=== PATIENT | male | born 1985 | race Caucasian/White ===

== ENCOUNTER 2016-09-17 10:11 | Emergency (ER) | payer BC ==
[2016-09-17 11:18] VITALS: BP 142/81
--- NOTE | 2016-09-17 11:55 | UC ---
Throat Pain/Nasal Sherif HPI - HPI Summary HPI Summary: has been dealing with sinus issues for a month. on and off fevers. when asked about his "hypothermic" episode, he states he had really bad chills but they went away. - History of Current Complaint Chief Complaint: UCGeneralIllness Stated Complaint: SINUS CONGESTION Time Seen by Provider: 09/17/16 11:35 Hx Obtained From: Patient Onset/Duration: Sudden Onset, Lasting Weeks Severity: Moderate Pain Intensity: 6 Pain Scale Used: 0-10 Numeric Cough: Nonproductive Associated Signs & Symptoms: Positive: Wheezing, Sinus Discomfort, Nasal Discharge, Fever - Epiglottits Risk Factors Epiglottis Risk Factors: Negative - Allergies/Home Medications Allergies/Adverse Reactions: Allergies Allergy/AdvReac Type Severity Reaction Status Date / Time Penicillins Allergy Vomiting Verified 07/30/16 08:50 Amoxicillin AdvReac Vomiting Verified 07/30/16 08:50 MOLD BASED PRODUCTS Allergy Vomiting Uncoded 09/17/16 11:13 Home Medications: Home Medications Pseudoephedrine TAB* [Sudafed TAB*] 09/17/16 [History] PMH/Surg Hx/FS Hx/Imm Hx Previously Healthy: Yes Endocrine History Of: Denies: Diabetes Cardiovascular History Of: Denies: Hypertension GI/ History Of: Denies: Renal Disease - Surgical History Surgical History: None - Family History Known Family History: Positive: Cardiac Disease, Hypertension, Diabetes - Social History Alcohol Use: Occasionally Substance Use Type: None Smoking Status (MU): Never Smoked Tobacco Review of Systems Constitutional: Fever, Chills, Fatigue Skin: Negative Eyes: Negative ENT: Sore Throat, Nasal Discharge Respiratory: Cough Cardiovascular: Negative Gastrointestinal: Negative Genitourinary: Negative Motor: Negative Neurovascular: Negative Musculoskeletal: Negative Neurological: Headache Psychological: Negative All Other Systems Reviewed And Are Negative: Yes Physical Exam Triage Information Reviewed: Yes Appearance: Well-Nourished, Ill-Appearing, Pain Distress Vital Signs: Initial Vital Signs Temp 98.3 F 09/17/16 11:14 Pulse 82 09/17/16 11:14 Resp 16 09/17/16 11:14 BP 142/81 09/17/16 11:14 Pulse Ox 97 09/17/16 11:14 Vital Signs Reviewed: Yes Eye Exam: Normal Eyes: Positive: Conjunctiva Clear ENT Exam: Normal ENT: Positive: Hearing grossly normal, Pharyngeal erythema, Nasal congestion, Nasal drainage, TM bulging Dental Exam: Normal Neck exam: Normal Neck: Positive: Supple, Nontender, Enlarged Nodes @ - left cervical Respiratory Exam: Normal Respiratory: Positive: Chest non-tender, Lungs clear, Normal breath sounds Cardiovascular Exam: Normal Cardiovascular: Positive: RRR, No Murmur, Pulses Normal Abdominal Exam: Normal Abdomen Description: Positive: Nontender, No Organomegaly, Soft Bowel Sounds: Positive: Present Musculoskeletal Exam: Normal Musculoskeletal: Positive: Strength Intact, ROM Intact, No Edema Neurological Exam: Normal Neurological: Positive: Alert, Muscle Tone Normal Psychological Exam: Normal Skin Exam: Normal Throat Pain/Nasal Course/Dx - Course Course Of Treatment: hx obtained, exam performed, medication prescribed. educated on fever reduction. he has been taking alot of ibuprofen. educated on max dose and use of tylenol and ice. - Differential Dx/Diagnosis Differential Diagnosis/HQI/PQRI: Influenza, Laryngitis, Otitis Media, Pharyngitis, Sinusitis, Tonsillitis, URI Provider Diagnoses: sinusitis Discharge - Discharge Plan Condition: Stable Disposition: HOME Patient Education Materials: Sinusitis (ED) Additional Instructions: take the medication as prescribed. Get plenty of rest and increase your fluid intake. Follow up with any worsening symptoms.
== END 2016-09-17 12:01 | disposition home or self-care (01) ==
LOC: UCEAST 10:11
DX: J32.9 Chronic sinusitis, unspecified (principal); Z88.0 Allergy status to penicillin
CPT/HCPCS: 99212; G0463

== ENCOUNTER 2017-03-22 07:21 | Emergency (ER) | payer BC ==
--- NOTE | 2017-03-22 07:59 | UC ---
HPI Wound/Suture Re-check - HPI Summary HPI Summary: SUSTAINED LACERATION TO LEFT ANKLE 03/16/17 WHILE DOING A TOUGH MUDDER. HERE FOR SUTURE REMOVAL. IS UTD TETANUS. IS TAKING 2 ANTIBIOTICS. WOUND HEALING WELL. NO PAIN OR DRAINAGE. - History Of Current Complaint Stated Complaint: SUTURE REMOVAL Time Seen by Provider: 03/22/17 07:41 Hx Obtained From: Patient Onset/Duration: Sudden Onset Severity: Mild Pain Intensity: 0 - Allergies/Home Medications Allergies/Adverse Reactions: Allergies Allergy/AdvReac Type Severity Reaction Status Date / Time Penicillins Allergy Vomiting Verified 03/22/17 07:48 Amoxicillin AdvReac Vomiting Verified 03/22/17 07:48 MOLD BASED PRODUCTS Allergy Vomiting Uncoded 03/22/17 07:48 Home Medications: Home Medications Antibiotics 03/22/17 [History] PMH/Surg Hx/FS Hx/Imm Hx Previously Healthy: Yes - Surgical History Surgical History: None - Family History Known Family History: Positive: Cardiac Disease, Hypertension, Diabetes - Social History Alcohol Use: Occasionally Substance Use Type: None Smoking Status (MU): Never Smoked Tobacco Review of Systems Constitutional: Negative Skin: Other - HEALING LACERATION Respiratory: Negative Cardiovascular: Negative Gastrointestinal: Negative All Other Systems Reviewed And Are Negative: Yes Physical Exam Triage Information Reviewed: Yes Appearance: Well-Appearing, No Pain Distress, Well-Nourished Vital Signs: Initial Vital Signs Temp 98.4 F 03/22/17 07:45 Pulse 71 03/22/17 07:45 Resp 20 03/22/17 07:45 BP 139/74 03/22/17 07:45 Pulse Ox 98 03/22/17 07:45 Vital Signs Reviewed: Yes Eyes: Positive: Conjunctiva Clear ENT: Positive: Hearing grossly normal Neck: Positive: Supple Respiratory: Positive: No respiratory distress, No accessory muscle use Cardiovascular: Positive: Pulses Normal Abdomen Description: Positive: Soft Musculoskeletal: Positive: No Edema Neurological: Positive: Alert Psychological: Positive: Age Appropriate Behavior Skin: Positive: Other - LACERATION HEALING WELL. EDGES WELL APPROXIMATED. NON TENDER. NO DRAINAGE. Course/Dx - Course Course Of Treatment: 7 SUTURES REMOVED WITHOUT DIFFICULTY. - Differential Dx - Laceration/Wound Provider Diagnoses: SUTURE REMOVAL LEFT ANKLE Discharge - Discharge Plan Condition: Stable Disposition: HOME Patient Education Materials: Stitches Removal (ED) Referrals: No Primary Care Phys,NOPCP [Primary Care Provider] - Additional Instructions: THE STERISTRIPS WILL FALL OFF ON THEIR OWN IN THE NEXT 1-2 WEEKS. DO NOT PUT ANY OINTMENT ON TOP OF THEM. DO NOT SUBMERGE IN WATER FOR PROLONGED PERIOD OF TIME. OKAY FOR BRIEF SHOWER AFTER 24 HOURS AND THEN BE SURE TO DRY COMPLETELY. SEEK FOLLOW-UP IF YOU DEVELOP SPREADING REDNESS OF THE SKIN, PURULENT DRAINAGE, FEVER, INCREASED PAIN OR ANY OTHER CONCERNING SYMPTOMS.
[2017-03-22 08:01] VITALS: BP 139/74
== END 2017-03-22 08:09 | disposition home or self-care (01) ==
LOC: UCEAST 07:21
DX: S91.012D Laceration without foreign body, left ankle, subsequent encounter (principal); X58.XXXD Exposure to other specified factors, subsequent encounter; Y92.9 Unspecified place or not applicable; Z88.0 Allergy status to penicillin
CPT/HCPCS: 99211; G0463

== ENCOUNTER 2017-06-30 11:12 | Emergency (ER) | payer BC ==
[2017-06-30 11:24] VITALS: BP 140/71
[2017-06-30] MEDS ORDERED: Ibuprofen TAB* 600 MG PO ONE (11:35)
--- NOTE | 2017-06-30 12:07 | UC ---
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 - History of Current Complaint Chief Complaint: UCDizziness Stated Complaint: DIZZINESS,HOT AND COLD SWEATS Time Seen by Provider: 06/30/17 12:00 Hx Obtained From: Patient Onset/Duration: Sudden Onset, Lasting Days Timing: Constant Severity Initially: Moderate Severity Currently: Moderate Pain Intensity: 5 Pain Scale Used: 0-10 Numeric Character: Cough: Nonproductive Alleviating Factors: OTC Meds Associated Signs And Symptoms: Positive: Fever, Chills, Dizziness - Allergies/Home Medications Allergies/Adverse Reactions: Allergies Allergy/AdvReac Type Severity Reaction Status Date / Time Penicillins Allergy Vomiting Verified 06/17/17 08:41 Amoxicillin AdvReac Vomiting Verified 06/17/17 08:41 MOLD BASED PRODUCTS Allergy Vomiting Uncoded 06/17/17 08:41 PMH/Surg Hx/FS Hx/Imm Hx Previously Healthy: Yes - Surgical History Surgical History: Yes Surgery Procedure, Year, and Place: Bilateral Myringotomy - Family History Known Family History: Positive: Cardiac Disease, Hypertension, Diabetes - Social History 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 Lives: With Family Alcohol Use: Rare Substance Use Type: None Smoking Status (MU): Never Smoked Tobacco Have You Smoked in the Last Year: No - Immunization History Most Recent Influenza Vaccination: Not UTD Review of Systems Constitutional: Fever, Chills, Fatigue Skin: Negative Eyes: Negative ENT: Negative Respiratory: Negative Cardiovascular: Negative Gastrointestinal: Negative Genitourinary: Negative Motor: Negative Neurovascular: Negative Musculoskeletal: Arthralgia Neurological: Negative Psychological: Negative Is Patient Immunocompromised?: No All Other Systems Reviewed And Are Negative: Yes Physical Exam Triage Information Reviewed: Yes Appearance: Well-Nourished, Ill-Appearing, Pain Distress Vital Signs: Initial Vital Signs Temp 102.0 F 06/30/17 11:20 Pulse 109 06/30/17 11:20 Resp 20 06/30/17 11:20 BP 140/71 06/30/17 11:20 Pulse Ox 97 06/30/17 11:20 Vital Signs Reviewed: Yes Eye Exam: Normal Eyes: Positive: Conjunctiva Clear ENT Exam: Normal ENT: Positive: Normal ENT inspection, Hearing grossly normal, Pharynx normal, TMs normal, Uvula midline. Negative: Nasal congestion, Nasal drainage, Tonsillar swelling, Tonsillar exudate, Trismus, Muffled voice, Hoarse voice, Sinus tenderness Dental Exam: Normal Neck exam: Normal Neck: Positive: Supple, Nontender, No Lymphadenopathy Respiratory Exam: Normal Respiratory: Positive: Chest non-tender, Lungs clear, Normal breath sounds, No respiratory distress, No accessory muscle use Cardiovascular Exam: Normal Cardiovascular: Positive: RRR, No Murmur, Brisk Capillary Refill, Tachycardia Abdominal Exam: Normal Abdomen Description: Positive: Nontender, No Organomegaly, Soft. Negative: CVA Tenderness (R), CVA Tenderness (L) Bowel Sounds: Positive: Present Musculoskeletal Exam: Normal Musculoskeletal: Positive: Strength Intact, ROM Intact, No Edema Neurological Exam: Normal Neurological: Positive: Alert Psychological Exam: Normal Skin Exam: Normal UC Diagnostic Evaluation - Laboratory O2 Sat by Pulse Oximetry: 97 Diagnostic Studies Comment: ua, influenza, strep (-) Re-Evaluation - Re-Evaluation First Eval Change: Improved - taking po fluids well, hungry, temp 101 Respiratory Course/Dx - Course Course Of Treatment: rest increase fluids, tylenol ibuprofen for pain/fever - Differential Dx/Diagnosis Provider Diagnoses: Viral illness, Elevated Blood pressure without dx of hypertension Discharge - Discharge Plan Condition: Stable Disposition: HOME Patient Education Materials: Fever in Adults (ED), Viral Syndrome (ED), Hypertension (ED) Forms: *Work Release Referrals: [facility] – [place], [place] [facility] REFERR[facility] [Outside] - 2 Weeks No Primary Care Phys,NOPCP [Primary Care Provider] -
== END 2017-06-30 12:53 | disposition home or self-care (01) ==
LOC: UCEAST 11:12
DX: B34.9 Viral infection, unspecified (principal); R03.0 Elevated blood-pressure reading, without diagnosis of hypertension
CPT/HCPCS: 81003; 87502; 87651; 99212; A9270-GY; G0463

== ENCOUNTER 2017-06-30 18:40 | Emergency (ER) | payer BC ==
[2017-06-30] MEDS ORDERED: NS 0.9% 1000 ML* 1,000 ML IV SCH (19:15)
--- NOTE | 2017-06-30 19:19 | UC ---
FLU HPI - HPI Summary HPI Summary: PT WITH 2-3 DAYS OF GO, DIZZINESS, COUGH, CONGESTION, ST, MILD EAR PAIN, SINUS PRESSURE, NAUSEA AND FEVER. FEELS ACHY. WAS SEEN HERE [facility] TODAY AND DX WITH VIRAL SYNDROME. RAPID FLU, STREP AND UA WERE DONE AND ALL NEGATIVE. PT STATES HE WENT HOME AND FELT BETTER BUT THEN STARTED TO FEEL BAD AGAIN AROUND 5PM. TOOK SOME IBUPROFEN AND DECIDED TO COME BACK HERE. PT REPORTS THAT SINCE TAKING THE IBUPROFEN ABOUT 90 MINUTES AGO HE IS FEELING A BIT BETTER AGAIN. 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 - History of Current Complaint Chief Complaint: UCDizziness Stated Complaint: DIZZY Time Seen by Provider: 06/30/17 19:00 Hx Obtained From: Patient, Family/Photographic Processor - GIRLFRIEND Onset/Duration: Gradual Onset, Lasting Days, Still Present Severity Currently: Moderate Severity Initially: Moderate Pain Intensity: 5 Pain Scale Used: 0-10 Numeric Associated Signs & Symptoms: Positive: Fever, Myalgia, Cough, Sore Throat, Nasal Congestion, Headache. Negative: Diarrhea - Allergy/Home Medications Allergies/Adverse Reactions: Allergies Allergy/AdvReac Type Severity Reaction Status Date / Time Penicillins Allergy Vomiting Verified 06/30/17 18:45 Amoxicillin AdvReac Vomiting Verified 06/30/17 18:45 MOLD BASED PRODUCTS Allergy Vomiting Uncoded 06/30/17 18:45 PMH/Surg Hx/FS Hx/Imm Hx Previously Healthy: Yes - Surgical History Surgical History: Yes Surgery Procedure, Year, and Place: Bilateral Myringotomy - Family History Known Family History: Positive: Cardiac Disease, Hypertension, Diabetes - Social History Alcohol Use: Rare Substance Use Type: None Smoking Status (MU): Never Smoked Tobacco Have You Smoked in the Last Year: No - Immunization History Most Recent Influenza Vaccination: Not UTD Review of Systems Constitutional: Fever, Chills, Fatigue ENT: Sore Throat, Ear Ache, Nasal Discharge Respiratory: Cough Cardiovascular: Negative Gastrointestinal: Nausea Musculoskeletal: Myalgia Neurological: Headache All Other Systems Reviewed And Are Negative: Yes Physical Exam Triage Information Reviewed: Yes Appearance: No Pain Distress, Well-Nourished, Ill-Appearing - MILD Vital Signs: Initial Vital Signs Temp 101.1 F 06/30/17 18:46 Pulse 105 06/30/17 18:46 Resp 24 06/30/17 18:46 BP 125/66 06/30/17 18:46 Pulse Ox 98 06/30/17 18:46 Vital Signs Reviewed: Yes Eyes: Positive: Conjunctiva Clear ENT: Positive: Hearing grossly normal, Pharynx normal, TMs normal Neck: Positive: Supple, Nontender, No Lymphadenopathy Respiratory Exam: Normal Cardiovascular: Positive: Tachycardia Abdomen Description: Positive: Nontender, Soft Musculoskeletal: Positive: No Edema Neurological: Positive: Alert Psychological: Positive: Normal Response To Family, Age Appropriate Behavior Skin: Negative: rashes Re-Evaluation - Re-Evaluation First Eval Re-Evaluation Time: 20:10 - feels improved after 1L NS. Ready for d/c home Change: Improved Flu Course/Dx - Differential Dx/Diagnosis Provider Diagnoses: ACUTE VIRAL SYNDROME Discharge - Discharge Plan Condition: Stable Disposition: HOME Patient Education Materials: Viral Syndrome (ED) Referrals: No Primary Care Phys,NOPCP [Primary Care Provider] - Additional Instructions: VIRAL SYNDROME: The physician has diagnosed a viral infection. Viruses not only cause "colds," but can cause many different symptoms including generalized aching, fever, headache, cough, diarrhea, nausea, vomiting, and fatigue. The treatment, for the most part, is simply relief of symptoms. This means that antibiotics are usually not given. Rest, fluids, pain medications and, occasionally, medication for the specific symptoms that are most bothersome will be prescribed. Contact the physician if you develop any new or unusual symptoms such as severe headache, stiff neck, high fever, chest pain, productive cough, or shortness of breath. You should be rechecked if you don't see marked improvement within seven to 10 days. STREP TEST, FLU SWAB AND URINE TEST [facility] TODAY WERE ALL NEGATIVE. NO NEED TO REPEAT OR DO ANY OTHER TESTING AT PRESENT. YOU HAD SOME IMPROVEMENT AFTER 1L SALINE INFUSION. REST AT HOME AND BE SURE TO STAY WELL HYDRATED. TYLENOL AND IBUPROFEN NEEDED FOR FEVER AND DISCOMFORT. IBUPROFEN MAX DOSE: 600MG (3 TABS) EVERY 6 HRS OR 800MG (4 TABS) EVERY 8 HRS TYLENOL MAX DOSE: 1000MG (2 EXTRA STRENGTH TABS) EVERY 8 HRS OR 650MG (2 REGULAR TABS) EVERY 6 HRS SEEK FOLLOW-UP HERE OR WITH A PCP IF YOUR SYMPTOMS DO NOT IMPROVE OVER THE NEXT SEVERAL DAYS. CALL THE NUMBER BELOW FOR ASSISTANCE IN ESTABLISHING WITH A PCP An additional resource available to assist in finding the appropriate physician for your health care needs is the [facility] ([facility]). You may contact them by calling [phone].
[2017-06-30 20:11] VITALS: BP 134/70
== END 2017-06-30 20:20 | disposition home or self-care (01) ==
LOC: UCEAST 18:40
DX: B34.9 Viral infection, unspecified (principal)
CPT/HCPCS: 96360; 99211; G0463

== ENCOUNTER 2017-07-02 03:23 | Emergency (ER) | payer BC ==
[2017-07-02] MEDS ORDERED: Acetaminophen TAB* 325 MG PO ONE (04:15)
[2017-07-02] MEDS ORDERED: NS 0.9% 1000 ML*IV.FLUID IV ONE (04:15)
[2017-07-02] MEDS ORDERED: Ketorolac INJ* 30 MG/ML 1 ML VIAL IV ONE (04:15)
[2017-07-02 05:01] LABS: Hematocrit 38 % (42-52); Hemoglobin 13.2 g/dl (14.0-18.0); Mean Corpuscular HGB Conc 35 g/dl (31-36); Mean Corpuscular Hemoglobin 29 pg (27-31); Mean Corpuscular Volume 83 fL (80-94); Mean Platelet Volume 8 um3 (7.4-10.4); Red Blood Count 4.58 10^6/ul (4.0-5.4); Red Cell Distribution Width 13 % (10.5-15); White Blood Count 6.2 10^3/ul (3.5-10.8)
[2017-07-02] MEDS ORDERED: Levofloxacin TAB* 750 MG PO ONE (05:08)
[2017-07-02 05:18] LABS: Albumin 3.6 g/dL (3.2-5.2); BUN/Creatinine Ratio 18.4 (8-20); C Reactive Protein 48.65 mg/L (< 5.00); Calcium 8.9 mg/dL (8.6-10.3); EGFR African American 154.9 (>60); EGFR Non-African American 120.4 (>60); Globulin 3.1 g/dL (2-4); Potassium 3.8 mmol/L (3.5-5.0); Total Bilirubin 2.2 mg/dL (0.2-1.0); Total Protein 6.7 g/dL (6.4-8.9)
--- NOTE | 2017-07-02 05:37 | ED ---
Gaye Kent Thomas, scribed for Jose Luis Rojo MD on 07/02/17 at 0504 . HPI Febrile Illness - HPI Summary HPI Summary: The pt is a 32 y/o M presenting to the ED c/o fever, lightheadedness, congestion , cough, and dizziness for the last four days ago. The patient has treated the symptoms with ibuprofen SAMPLE PASTER, and this ibuprofen relieves his dizziness. The patient had a near-syncopal episode because I had 30% motor function. Pt additionally c/o vomiting (once three days ago), headache (8/10), and diarrhea. The patient has been evaluated twice at urgent care in the last two days. Rapid Strep and Influenza A/B were negative. Pt denies photophobia and SOB. - History of Current Complaint Chief Complaint: EDUpperRespComplaint Time Seen by Provider: 07/02/17 04:04 Hx Obtained From: Patient Onset/Duration: Started Days Ago - 4, Still Present Timing: Constant Current Severity: Moderate Pain Intensity: 6 Pain Scale Used: 0-10 Numeric Aggravating Factors: Nothing Alleviating Factors: Other: - ibuprofen relieves dizziness Associated Signs and Symptoms: Other: - Fever, lightheadedness, congestion, cough, dizziness, near-syncope, vomiting, headache, diarrhea; NEGATIVE: photophobia, SOB - Allergy/Home Medications Allergies/Adverse Reactions: Allergies Allergy/AdvReac Type Severity Reaction Status Date / Time Penicillins Allergy Vomiting Verified 07/02/17 03:32 Amoxicillin AdvReac Vomiting Verified 07/02/17 03:32 MOLD BASED PRODUCTS Allergy Vomiting Uncoded 07/02/17 03:32 PMH/Surg Hx/FS Hx/Imm Hx Previously Healthy: Yes Endocrine/Hematology History: Denies: Hx Diabetes Cardiovascular History: Denies: Hx Hypertension History: Denies: Hx Renal Disease - Surgical History Surgery Procedure, Year, and Place: Bilateral Myringotomy Infectious Disease History: No Infectious Disease History: Denies: Hx Clostridium Difficile, Hx Hepatitis, Hx Human Immunodeficiency Virus (HIV), Hx of Known/Suspected MRSA, Hx Shingles, Hx Tuberculosis, Hx Known/ Suspected VRE, Hx Known/Suspected VRSA, History Other Infectious Disease, Traveled Outside the [place] in Last 30 Days - Family History Known Family History: Positive: Cardiac Disease, Hypertension, Diabetes - Social History Alcohol Use: Rare Hx Substance Use: No Substance Use Type: Reports: None Hx Tobacco Use: No Smoking Status (MU): Never Smoked Tobacco Have You Smoked in the Last Year: No Review of Systems Positive: Fever Negative: Photophobia Positive: Other - Congestion Positive: Cough. Negative: Shortness Of Breath Positive: Vomiting, Diarrhea Neurological: Other - Lightheadedness, dizziness Positive: Headache, Syncope - near All Other Systems Reviewed And Are Negative: Yes Physical Exam - Summary Physical Exam Summary: VITAL SIGNS: Reviewed. GENERAL: Patient is a well-developed and nourished male who is lying comfortable in the stretcher. Patient is not in any acute respiratory distress. HEAD AND FACE: No signs of trauma. No ecchymosis, hematomas or skull depressions. No sinus tenderness. EYES: PERRLA, EOMI x 2, No injected conjunctiva, no nystagmus. EARS: Hearing grossly intact. Ear canals and tympanic membranes are within normal limits. MOUTH: Oropharynx within normal limits. NECK: Supple, trachea is midline, no adenopathy, no JVD, no carotid bruit, no c- spine tenderness, neck with full ROM. CHEST: Symmetric, no tenderness at palpation LUNGS: Clear to auscultation bilaterally. No wheezing or crackles. CVS: Regular rate and rhythm, S1 and S2 present, no murmurs or gallops appreciated. ABDOMEN: Soft, non-tender. No signs of distention. No rebound no guarding, and no masses palpated. Bowel sounds are normal. EXTREMITIES: FROM in all major joints, no edema, no cyanosis or clubbing. NEURO: Alert and oriented x 3. No acute neurological deficits. Speech is normal and follows commands. SKIN: Dry and warm Triage Information Reviewed: Yes Vital Signs On Initial Exam: Initial Vitals Temp Pulse Resp BP Pulse Ox 102.4 F 95 20 138/50 97 07/02/17 03:25 07/02/17 03:25 07/02/17 03:25 07/02/17 03:25 07/02/17 03:25 Vital Signs Reviewed: Yes Diagnostics - Vital Signs Vital Signs Temp Pulse Resp BP Pulse Ox 07/02/17 04:19 103 98 07/02/17 03:25 102.4 F 95 20 138/50 97 - Laboratory Lab Results: Lab Results 07/02/17 Range/Units 04:30 WBC 6.2 (3.5-10.8) 10^3/ul RBC 4.58 (4.0-5.4) 10^6/ul Hgb 13.2 L (14.0-18.0) g/dl Hct 38 L (42-52) % MCV 83 (80-94) fL MCH 29 (27-31) pg MCHC 35 (31-36) g/dl RDW 13 (10.5-15) % Plt Count 198 (150-450) 10^3/ul MPV 8 (7.4-10.4) um3 Neut % (Auto) 63.1 (38-83) % Lymph % (Auto) 17.2 L (25-47) % [place] % (Auto) 19.0 H (1-9) % Eos % (Auto) 0.2 (0-6) % Baso % (Auto) 0.5 (0-2) % Absolute Neuts (auto) 3.9 (1.5-7.7) 10^3/ul Absolute Lymphs (auto) 1.1 (1.0-4.8) 10^3/ul Absolute Monos (auto) 1.2 H (0-0.8) 10^3/ul Absolute Eos (auto) 0 (0-0.6) 10^3/ul Absolute Basos (auto) 0 (0-0.2) 10^3/ul Absolute Nucleated RBC 0 10^3/ul Nucleated RBC % 0.1 Result Diagrams: 07/02/17 04:30 07/02/17 04:30 Lab Statement: Any lab studies that have been ordered have been reviewed, and results considered in the medical decision making process. - Radiology CXR Xray Interpretation: Positive (See Comments) - Right middle lobe infiltrate Radiology Interpretation Completed By: ED Physician Course/Dx - Course Assessment/Plan: The pt is a 32 y/o M presenting to the ED c/o fever, lightheadedness, congestion, cough, and dizziness for the last four days ago. The patient has treated the symptoms with ibuprofen SAMPLE PASTER, and this ibuprofen relieves his dizziness. The patient had a near-syncopal episode because I had 30% motor function. Pt additionally c/o vomiting (once three days ago), headache (8/10), and diarrhea. The patient has been evaluated twice at urgent care in the last two days. Rapid Strep and Influenza A/B were negative. Pt denies photophobia and SOB. In the ED course the patient was given Acetaminophen, Toradol, Levaquin, and IV fluids. Bloodwork was obtained. CXR is consistent with right middle lobe pneumonia. The patient feels better and would like to be discharged. The patient is instructed to follow up with primary care. The patient is prescribed Levaquin. Patient is agreeable with this plan. - Diagnoses Provider Diagnoses: Right middle lobe pneumonia Discharge - Discharge Plan Condition: Stable Disposition: HOME Patient Education Materials: Pneumonia (ED) Referrals: [facility] [place] [facility] [Outside] - 3 Days Additional Instructions: Follow up with your primary care provider in 3 days. If you do not have a primary care physician, you can use the [facility] [place] Physician Referral Service to find one and make an appointment. Return to the emergency department for any new or worsening symptoms. The documentation as recorded by the Gaye malone Thomas accurately reflects the service I personally performed and the decisions made by me, Jose Luis Rojo MD.
[2017-07-02 05:47] VITALS: BP 125/53
--- NOTE | 2017-07-02 07:49 | RAD ---
HISTORY: Fever, cough COMPARISONS: None VIEWS: 1: frontal portable view of the chest at 30 a.m. FINDINGS: LINES AND TUBES: None. CARDIOMEDIASTINAL SILHOUETTE: The cardiomediastinal silhouette is normal for portable technique. PLEURA: The costophrenic angles are sharp. No pleural abnormalities are noted. LUNG PARENCHYMA: There is confluent alveolar opacification of the right midlung. ABDOMEN: The upper abdomen is clear. There is no subphrenic gas. BONES AND SOFT TISSUES: No bone or soft tissue abnormalities are noted. IMPRESSION: RIGHT MIDLUNG CONSOLIDATION. RECOMMEND FOLLOW-UP UNTIL RESOLUTION TO EXCLUDE UNDERLYING PULMONARY PARENCHYMAL PATHOLOGY.
== END 2017-07-02 05:47 | disposition home or self-care (01) ==
LOC: ED 03:23
DX: J18.9 Pneumonia, unspecified organism (principal); Z88.0 Allergy status to penicillin
CPT/HCPCS: 36415; 71010; 80053; 83605; 85025; 85610; 86140; 87040; 87502; 96360; 96374; 99284; A9270-GY; J1885

== ENCOUNTER 2018-02-17 12:28 | Emergency (ER) | payer BC ==
[2018-02-17 12:48] VITALS: BP 124/83
--- NOTE | 2018-02-17 12:48 | UC ---
Abdominal Pain Male HPI - HPI Summary HPI Summary: 32 yo male presents with LLQ and lower abdominal pain. He tells me that 4 days ago he was at [place] with his friends and he developed lower abdominal cramping and had diarrhea intermittently throughout the day. 3 days ago was the same. Yesterday felt fine and had no diarrhea. Today developed lower abdominal cramping and one episode of loose stool. Throughout this time has been eating and drinking as usual and denies fever. Denies vomiting, dysuria, back pain, dysuria, or blood in stool. - History of Current Complaint Chief Complaint: UCAbdominalPain Stated Complaint: ABDOMINAL PAIN Time Seen by Provider: 02/17/18 12:37 Hx Obtained From: Patient Onset/Duration: Gradual Onset Severity Initially: Mild Severity Currently: Mild Pain Intensity: 4 Pain Scale Used: 0-10 Numeric - Allergies/Home Medications Allergies/Adverse Reactions: Allergies Allergy/AdvReac Type Severity Reaction Status Date / Time amoxicillin Allergy Vomiting Verified 02/17/18 12:49 Penicillins Allergy Vomiting Verified 02/17/18 12:49 MOLD BASED PRODUCTS Allergy Vomiting Uncoded 07/02/17 03:32 PMH/Surg Hx/FS Hx/Imm Hx - Additional Past Medical History Additional PMH: None Previously Healthy: Yes - Surgical History Surgical History: Yes Surgery Procedure, Year, and Place: Bilateral Myringotomy - Family History Known Family History: Positive: Cardiac Disease, Hypertension, Diabetes - Social History Alcohol Use: Occasionally Substance Use Type: None Smoking Status (MU): Never Smoked Tobacco Have You Smoked in the Last Year: No - Immunization History Most Recent Influenza Vaccination: Not UTD Review of Systems Constitutional: Negative Skin: Negative Respiratory: Negative Cardiovascular: Negative Gastrointestinal: Abdominal Pain, Diarrhea Neurovascular: Negative Neurological: Negative Psychological: Negative All Other Systems Reviewed And Are Negative: Yes Physical Exam - Summary Physical Exam Summary: GENERAL: NAD. WDWN. No pain distress. SKIN: No rashes, sores, lesions, or open wounds. NECK: Supple. Nontender. No lymphadenopathy. CHEST: CTAB. No r/r/w. No accessory muscle use. Breathing comfortably and in no distress. CV: RRR. Without m/r/g. Pulses intact. Brisk cap refill. ABDOMEN: Mild TTP lower abdomen. Soft. No distention or guarding. No organomegaly. No CVA tenderness. Bowel sounds present. Negative psoas and obturator. NEURO: Alert. CN II-XII grossly intact. PSYCH: Age appropriate behavior. Triage Information Reviewed: Yes Vital Signs: Initial Vital Signs Temp 99.3 F 02/17/18 12:45 Pulse 77 02/17/18 12:45 Resp 18 02/17/18 12:45 BP 124/83 02/17/18 12:45 Pulse Ox 96 02/17/18 12:45 Abd Pain Male Course/Dx - Course Course Of Treatment: Suspect viral gastroenteritis vs diverticulitis. Pt did not want to go to the ED today. Will treat him with Cipro and Flagyl and stressed that he should go to the ED if his symptoms worsen or if he develops a fever/vomiting/new symptoms. Pt was agreeable to this plan - Differential Dx/Clinical Impression Provider Diagnoses: Low abdominal pain. Diarrhea Discharge - Sign-Out/Discharge Documenting (check all that apply): Discharge/Admit/Transfer - Discharge Plan Condition: Stable Disposition: HOME Prescriptions: Ciprofloxacin TAB* [Cipro 500 MG TAB*] 500 mg PO BID #14 tab metroNIDAZOLE [Flagyl 500 MG TAB] 500 mg PO TID #21 tab Patient Education Materials: Diverticulitis (ED), Diverticulitis Diet (ED) Forms: *Work Release Referrals: No Primary Care Phys,NOPCP [Primary Care Provider] - Additional Instructions: If you develop a fever, shortness of breath, chest pain, worsening abdominal pain, vomiting, new or worsening symptoms - please call your PCP or go to the ED. - Billing Disposition and Condition Condition: STABLE Disposition: Home
== END 2018-02-17 13:25 | disposition home or self-care (01) ==
LOC: UCEAST 12:28
DX: R10.32 Left lower quadrant pain (principal); R19.7 Diarrhea, unspecified; Z88.0 Allergy status to penicillin; Z88.1 Allergy status to other antibiotic agents; Z91.09 Other allergy status, other than to drugs and biological substances
CPT/HCPCS: 99212; G0463

== ENCOUNTER 2018-05-03 13:51 | Emergency (ER) | payer BC ==
[2018-05-03 14:56] VITALS: BP 127/79
--- NOTE | 2018-05-03 16:30 | UC ---
Respiratory Complaint HPI - HPI Summary HPI Summary: Pt is a 33 year old M presenting to with a respiratory complaint. His throat started hurting on Saturday, and it progressively got worse, with neck swelling, inability to swallow without pain, and loss of voice. Today, he can see inflammation and discoloration in his throat. The pt reports a runny nose and a little cough and congestion. The pt denies any fever or chills. The pt refused a throat swab for strep testing. - History of Current Complaint Chief Complaint: UCRespiratory Stated Complaint: SORE THROAT Time Seen by Provider: 05/03/18 16:19 Hx Obtained From: Patient Onset/Duration: Gradual Onset, Lasting Days, Still Present Timing: Constant Severity Initially: Mild Severity Currently: Mild Pain Intensity: 2 Pain Scale Used: 0-10 Numeric Character: Cough: Productive Aggravating Factors: Deep Breaths Associated Signs And Symptoms: Positive: Nasal Congestion, Hoarseness. Negative : Fever, Chills - Allergies/Home Medications Allergies/Adverse Reactions: Allergies Allergy/AdvReac Type Severity Reaction Status Date / Time amoxicillin Allergy Vomiting Verified 05/03/18 14:55 Penicillins Allergy Vomiting Verified 05/03/18 14:55 MOLD BASED PRODUCTS Allergy Vomiting Uncoded 05/03/18 14:55 Home Medications: Home Medications Cetirizine* [ZyrTEC 10 MG TAB*] 10 mg PO DAILY 05/03/18 [History Confirmed 05/03] Ibuprofen 400 mg PO 05/03/18 [History] PMH/Surg Hx/FS Hx/Imm Hx Previously Healthy: Yes Cardiovascular History: Congestive Heart Failure - negative GI/ History: Renal Disease - negative - Surgical History Surgical History: Yes Surgery Procedure, Year, and Place: Bilateral Myringotomy tubes - Family History Known Family History: Positive: Cardiac Disease, Hypertension, Diabetes - Social History Alcohol Use: Rare Substance Use Type: None Smoking Status (MU): Never Smoked Tobacco Have You Smoked in the Last Year: No - Immunization History Most Recent Influenza Vaccination: Not UTD Review of Systems Constitutional: Negative - fever, chills ENT: Negative - ear ache, Sore Throat, Nasal Discharge, Sinus Congestion Respiratory: Cough All Other Systems Reviewed And Are Negative: Yes Physical Exam - Summary Physical Exam Summary: General: well-appearing, no pain distress Skin: warm, color reflects adequate perfusion, dry Head: normal Eyes: EOMI, KARLENE ENT: positive posterior erythema, positive anterior cervical lymphadenopathy Neck: supple, nontender Respiratory: CTA, breath sounds present Cardiovascular: RRR Abdomen: soft, nontender Bowel: present Musculoskeletal: normal, strength/ROM intact Neurological: sensory/motor intact, A&O x3 Psychological: affect/mood appropriate Triage Information Reviewed: Yes Vital Signs: Initial Vital Signs Temp 98.2 F 05/03/18 14:51 Pulse 95 05/03/18 14:51 Resp 18 05/03/18 14:51 BP 127/79 05/03/18 14:51 Pulse Ox 100 05/03/18 14:51 Vital Signs Reviewed: Yes UC Diagnostic Evaluation - Laboratory O2 Sat by Pulse Oximetry: 100 Respiratory Course/Dx - Course Course Of Treatment: VIRAL VERSES BACTERIAL CAUSES OF INFECTION AND THE ROLE OF ANTIBIOTICS WERE DISCUSSED. AT THIS TIME, THE PATIENT PREFERS TO START ANTIBIOTICS. - Differential Dx/Diagnosis Provider Diagnoses: PHARYNGITIS Discharge - Sign-Out/Discharge Documenting (check all that apply): Patient Departure All imaging exams completed and their final reports reviewed: No Studies - Discharge Plan Condition: Stable Disposition: HOME Prescriptions: Azithromyxin RON (NF) [Z-Ron (Zithromax) 250 mg tabs #6] 2 tab PO .TODAY, THEN 1 DAILY #6 tab Patient Education Materials: Pharyngitis (ED) [place] [facility] [place] [facility] [place]] Additional Instructions: FOLLOW UP WITH YOUR DOCTOR IF NOT COMPLETELY IMPROVED. GET RECHECKED FOR ANY WORSENING OF YOUR CONDITION OR QUESTIONS OR CONCERNS. - Billing Disposition and Condition Condition: STABLE Disposition: Home - Attestation Statements Document Initiated by Scribe: Yes Documenting Scribe: Mary Marin Provider For Whom Bryson is Documenting (Include Credential): Artem Calix MD. Scribe Attestation: Donte, Mary Marin, scribed for Artem Calix MD. on 05/03/18 at 2131. Scribe Documentation Reviewed: Yes Provider Attestation: The documentation as recorded by the scribe, Mary Marin accurately reflects the service I personally performed and the decisions made by me, Artem Calix MD.
== END 2018-05-03 16:30 | disposition home or self-care (01) ==
LOC: UCEAST 13:51
DX: J02.9 Acute pharyngitis, unspecified (principal); Z88.0 Allergy status to penicillin
CPT/HCPCS: 99212; G0463

== ENCOUNTER 2018-05-30 21:40 | Emergency (ER) | payer BC ==
[2018-05-30] MEDS ORDERED: Lidocaine 2% 10 ML* VIAL INJ ONE (23:16)
[2018-05-30] MEDS ORDERED: Lidocaine 2% PF * 5 ML VIAL ONE (23:17)
--- NOTE | 2018-05-30 23:24 | ED ---
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 The laceration is located on the palm of the right hand and U shaped. Patient states that he tried to hit a mouse with a broom when the broom broke against the ground and shattered into his hand. The pain is rated 3/10 in severity. Symptoms aggravated by nothing. Symptoms alleviated by nothing. Patient denies any other medical complaints. - History of Current Complaint Stated Complaint: RT HAND LAC Time Seen by Provider: 05/30/18 23:12 Hx Obtained From: Patient Mechanism of Injury: Sharp/Blunt Trauma Onset/Duration: Sudden Onset, Lasting Hours, Still Present Aggravating: Nothing Alleviating: Nothing Current Severity: Moderate Pain Intensity: 3 Pain Scale Used: 0-10 Numeric - Allergy/Home Medications Allergies/Adverse Reactions: Allergies Allergy/AdvReac Type Severity Reaction Status Date / Time amoxicillin Allergy Vomiting Verified 05/30/18 21:50 Penicillins Allergy Vomiting Verified 05/30/18 21:50 MOLD BASED PRODUCTS Allergy Vomiting Uncoded 05/03/18 14:55 Home Medications: Home Medications NK [No Home Medications Reported] 05/30/18 [History Confirmed 05/30/18] PMH/Surg Hx/FS Hx/Imm Hx Previously Healthy: Yes Endocrine/Hematology History: Denies: Hx Diabetes Cardiovascular History: Denies: Hx Hypertension History: Denies: Hx Renal Disease - Surgical History Surgery Procedure, Year, and Place: Bilateral Myringotomy tubes Infectious Disease History: No Infectious Disease History: Denies: Hx Clostridium Difficile, Hx Hepatitis, Hx Human Immunodeficiency Virus (HIV), Hx of Known/Suspected MRSA, Hx Shingles, Hx Tuberculosis, Hx Known/ Suspected VRE, Hx Known/Suspected VRSA, History Other Infectious Disease, Traveled Outside the [place] in Last 30 Days - Family History Known Family History: Positive: Cardiac Disease, Hypertension, Diabetes - Social History Lives: With Family Alcohol Use: Rare Hx Substance Use: No Substance Use Type: Reports: None Hx Tobacco Use: No Smoking Status (MU): Never Smoked Tobacco Have You Smoked in the Last Year: No Review of Systems Negative: Fever Positive: Other - right palm laceration All Other Systems Reviewed And Are Negative: Yes Physical Exam - Summary Physical Exam Summary: Appearance: Well-appearing, Well-nourished, lying in bed comfortable Skin: Warm, dry, right hand has a flap laceration with a 2cm base that appears to be viable Eyes: sclera anicteric, no conjunctival pallor ENT: mucous membranes moist Neck: deferred Respiratory: No signs of respiratory distress Cardiovascular: Appears well perfused, pulses are nml Abdomen: deferred Musculoskeletal: Moving all 4 extremities without obvious discomfort Neurological: Awake and alert, mentation is normal, speech is fluent and appropriate Psychiatric: affect is normal, does not appear anxious or depressed ' Triage Information Reviewed: Yes Vital Signs On Initial Exam: Initial Vitals Temp Pulse Resp BP Pulse Ox 98.6 F 97 18 129/63 98 05/30/18 21:45 05/30/18 21:45 05/30/18 21:45 05/30/18 21:45 05/30/18 21:45 Vital Signs Reviewed: Yes Procedures - Laceration/Wound Repair 1 Location: upper extremity - right palm Length, Depth and Shape: 4 cm flap laceration on 2 cm base Laceration/Wound Explored: clean Closure: Single Layer Suture Type: Nylon Number of Sutures: 5 Layer Closure?: No Sterile Dressing Applied?: Yes Diagnostics - Vital Signs Vital Signs Temp Pulse Resp BP Pulse Ox 05/30/18 21:45 98.6 F 97 18 129/63 98 - Laboratory Lab Statement: Any lab studies that have been ordered have been reviewed, and results considered in the medical decision making process. 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 The laceration is located on the palm of the right hand and U shaped. Laceration repaired. Patient will be discharged with a dx of laceration. Patient is advised to follow up with PCP and orthopedic surgeon in 3 days. The patient is agreeable with this plan. - Clinical Impression Provider Diagnoses: Laceration of right hand Discharge - Sign-Out/Discharge Documenting (check all that apply): Patient Departure - Discharge Plan Condition: Stable Disposition: HOME Patient Education Materials: Laceration (ED) Referrals: Marco Latham MD [Medical Doctor] - Additional Instructions: If the wound starts to look infected, the orthopedic surgeon would be the best person to treat you. If healing is going well sutures should be removed in about 10 days. Change the dressing twice daily or whenever it gets dirty. - Billing Disposition and Condition Condition: STABLE Disposition: Home - Attestation Statements Document Initiated by Bryson: Yes Documenting Scribe: Eileen Zavala Provider For Whom Bryson is Documenting (Include Credential): Amado Jacob MD Scribaniyah Attestation: Eileen Kent scribed for Amado Jacob MD on 06/02/18 at 1357. Scribe Documentation Reviewed: Yes Provider Attestation: The documentation as recorded by the Eileen malone accurately reflects the service I personally performed and the decisions made by me, Amado Jacob MD
[2018-05-30 23:42] VITALS: BP 121/74
== END 2018-05-30 23:41 | disposition home or self-care (01) ==
LOC: ED 21:40
DX: S61.411A Laceration without foreign body of right hand, initial encounter (principal); W26.8XXA Contact with other sharp object(s), not elsewhere classified, initial encounter; Y93.89 Activity, other specified; Y92.9 Unspecified place or not applicable; Z88.0 Allergy status to penicillin
CPT/HCPCS: 12002; 99282

== ENCOUNTER 2018-06-04 19:42 | Emergency (ER) | payer BC ==
[2018-06-04 20:03] VITALS: BP 142/68
--- NOTE | 2018-06-04 20:59 | UC ---
Skin Complaint HPI - HPI Summary HPI Summary: SUSTAINED A LACERATION TO HIS RIGHT PALM 5 DAYS AGO (05/30/18) ON A METAL BROOM HANDLE. HAD 4 SUTURES PLACED IN THE ED. STATES IT WAS FEELING OKAY UNTIL LAST NIGHT. THIS MORNING HE WOKE UP AND HAD INCREASED SWELLING, PAIN AND PURULENT DRAINAGE FROM THE WOUND. SKIN EDGES APPEAR TO HAVE DEHISCED. - History of Current Complaint Chief Complaint: UCLaceration Time Seen by Provider: 06/04/18 20:45 Stated Complaint: HAND LAC,INFLAMED Hx Obtained From: Patient Onset/Duration: Sudden Onset, Lasting Hours, Still Present Timing: Constant Onset Severity: Moderate Current Severity: Moderate Pain Intensity: 4 Pain Scale Used: 0-10 Numeric Location: Discrete - RIGHT PALM Character: Swelling, Pain Aggravating Factor(s): Touch Alleviating Factor(s): Nothing Associated Signs & Symptoms: Positive: Drainage, Tenderness - Allergy/Home Medications Allergies/Adverse Reactions: Allergies Allergy/AdvReac Type Severity Reaction Status Date / Time amoxicillin Allergy Vomiting Verified 06/04/18 20:04 Penicillins Allergy Vomiting Verified 06/04/18 20:04 MOLD BASED PRODUCTS Allergy Vomiting Uncoded 06/04/18 20:04 Review of Systems Constitutional: Negative Skin: Other - LACERATION RIGHT PALM - DEHISCED Respiratory: Negative Cardiovascular: Negative Gastrointestinal: Negative Musculoskeletal: Arthralgia, Decreased ROM, Edema All Other Systems Reviewed And Are Negative: Yes PMH/Surg Hx/FS Hx/Imm Hx Previously Healthy: Yes - Surgical History Surgical History: Yes Surgery Procedure, Year, and Place: Bilateral Myringotomy tubes - Family History Known Family History: Positive: Cardiac Disease, Hypertension, Diabetes - Social History Alcohol Use: Rare Substance Use Type: None Smoking Status (MU): Never Smoked Tobacco Have You Smoked in the Last Year: No - Immunization History Most Recent Influenza Vaccination: Not UTD Most Recent Tetanus Shot: 2011 Physical Exam Triage Information Reviewed: Yes Appearance: Well-Nourished, Pain Distress - MOD Vital Signs: Initial Vital Signs Temp 98.3 F 06/04/18 20:00 Pulse 88 06/04/18 20:00 Resp 12 06/04/18 20:00 BP 142/68 06/04/18 20:00 Pulse Ox 98 06/04/18 20:00 Vital Signs Reviewed: Yes Eyes: Positive: Conjunctiva Clear ENT: Positive: Hearing grossly normal Neck: Positive: Supple Respiratory: Positive: No respiratory distress, No accessory muscle use Cardiovascular: Positive: Pulses Normal Abdomen Description: Positive: Soft Musculoskeletal: Positive: ROM Limited @ - RIGHT HAND, Edema @ - RIGHT HAND SURROUNDING LACERATION, Other: - TTP RIGHT PALM AROUND LACERATION Neurological: Positive: Alert Psychological: Positive: Age Appropriate Behavior Skin: Positive: Other - LACERATION SKIN EDGES DEHISCED, MACERATED Diagnostics - Radiology RIGHT HAND XRAY Radiology Interpretation Completed By: ED Physician Summary of Radiographic Findings: NO FB SEEN Course/Dx - Course Course Of Treatment: WOUND SCRUBBED WITH STERILE SALINE. ONE SUTURE REMOVED WITH SIGNIFICANT IMPROVEMENT IN PATIENT DISCOMFORT. SKIN EDGES LAYING FLATTER. NO DRAINAGE. KEFLEX TWICE DAILY. TDAP BOOSTER. REMAINING SUTURES TO BE REMOVED IN 5 DAYS. - Diagnoses Provider Diagnoses: WOUND DEHISCENCE Discharge - Sign-Out/Discharge Documenting (check all that apply): Patient Departure All imaging exams completed and their final reports reviewed: No - Discharge Plan Condition: Stable Disposition: HOME Prescriptions: Cephalexin CAP* [Keflex 500 CAP*] 500 mg PO BID #12 cap Patient Education Materials: Wound Dehiscence (ED) Referrals: Merle Sykes MD [Primary Care Provider] - If Needed Additional Instructions: ONE STITCH REMOVED TODAY WITH IMPROVEMENT IN YOUR DISCOMFORT. TAKE KEFLEX TWICE DAILY TO COVER FOR ANY INFECTIOUS PROCESS. KEEP THE WOUND CLEAN AND DRY. CHANGE BANDAGE DAILY AND NEEDED IF IT BECOMES SOILED OR WET. DO NOT SUBMERGE IN WATER FOR PROLONGED PERIOD OF TIME. OKAY FOR BRIEF SHOWER AND THEN BE SURE TO ALLOW TO DRY COMPLETELY. SEEK FOLLOW-UP IF YOU DEVELOP SPREADING REDNESS OF THE SKIN, PURULENT DRAINAGE, FEVER, INCREASED PAIN OR ANY OTHER CONCERNING SYMPTOMS. HAVE THE REMAINING 3 SUTURES REMOVED IN 5 DAYS. TETANUS IMMUNIZATION GIVEN (TDAP): You have been given an immunization against tetanus. Please record this in your records. In general, a booster is needed only once every 10 years. The tetanus shot protects against tetanus or "lockjaw," which is a complication of certain wound infections (the tetanus shot cannot protect against the actual infection). The immunization site may become warm and red due to local reaction. If this occurs, apply warm compresses and take aspirin or ibuprofen to reduce inflammation and discomfort. Return for evaluation if the reaction becomes severe. - Billing Disposition and Condition Condition: STABLE Disposition: Home
[2018-06-04] MEDS ORDERED: Tetan/Diph/Pertus SYR(Tdap)* 0.5 ML SYR(BOOSTRIX) use SYR IM ONE (21:42)
[2018-06-04] MEDS ORDERED: Cephalexin CAP* 500 MG PO ONE ×2 (21:43)
--- NOTE | 2018-06-05 07:21 | RAD ---
INDICATION: Evaluate for foreign body. TECHNIQUE: 4 views of the right hand were obtained. FINDINGS: The bones are normal alignment. No fracture or radiopaque foreign body is seen. Joint spaces appear maintained. IMPRESSION: NO RADIOPAQUE FOREIGN BODY IS SEEN.
--- NOTE | 2018-06-05 08:27 | UC ---
- Progress Note Progress Note: Radiologist has read the right hand x-ray from June 04, 2018 as no foreign body seen. The provider's reading was no foreign body seen. Therefore there are NO discrepancies. Discharge - Sign-Out/Discharge Documenting (check all that apply): Patient Departure All imaging exams completed and their final reports reviewed: Yes - Discharge Plan Condition: Stable Disposition: HOME Prescriptions: Cephalexin CAP* [Keflex 500 CAP*] 500 mg PO BID #12 cap Patient Education Materials: Wound Dehiscence (ED) Referrals: Merle Sykes MD [Primary Care Provider] - If Needed Additional Instructions: ONE STITCH REMOVED TODAY WITH IMPROVEMENT IN YOUR DISCOMFORT. TAKE KEFLEX TWICE DAILY TO COVER FOR ANY INFECTIOUS PROCESS. KEEP THE WOUND CLEAN AND DRY. CHANGE BANDAGE DAILY AND NEEDED IF IT BECOMES SOILED OR WET. DO NOT SUBMERGE IN WATER FOR PROLONGED PERIOD OF TIME. OKAY FOR BRIEF SHOWER AND THEN BE SURE TO ALLOW TO DRY COMPLETELY. SEEK FOLLOW-UP IF YOU DEVELOP SPREADING REDNESS OF THE SKIN, PURULENT DRAINAGE, FEVER, INCREASED PAIN OR ANY OTHER CONCERNING SYMPTOMS. HAVE THE REMAINING 3 SUTURES REMOVED IN 5 DAYS. TETANUS IMMUNIZATION GIVEN (TDAP): You have been given an immunization against tetanus. Please record this in your records. In general, a booster is needed only once every 10 years. The tetanus shot protects against tetanus or "lockjaw," which is a complication of certain wound infections (the tetanus shot cannot protect against the actual infection). The immunization site may become warm and red due to local reaction. If this occurs, apply warm compresses and take aspirin or ibuprofen to reduce inflammation and discomfort. Return for evaluation if the reaction becomes severe. - Billing Disposition and Condition Condition: STABLE Disposition: Home
== END 2018-06-04 21:55 | disposition home or self-care (01) ==
LOC: UCEAST 19:42
DX: T81.33XA Disruption of traumatic injury wound repair, initial encounter (principal); Z23 Encounter for immunization; Z88.0 Allergy status to penicillin
CPT/HCPCS: 90471; 90715; 99212; A9270-GY; G0463

== ENCOUNTER 2018-06-09 18:44 | Emergency (ER) | payer BC ==
[2018-06-09 18:55] VITALS: BP 113/68
[2018-06-09] MEDS ORDERED: Mupirocin 2% OINT* TUBE TOPICAL ONE (20:28)
--- NOTE | 2018-06-09 20:34 | UC ---
Hand/Wrist HPI - HPI Summary HPI Summary: 33-year-old male with a chief complaint of right hand wound it's been sutured and not healing well. Due to laceration on 30 May 2018 that was sutured. This started to be some swelling in one area of the laceration and he came back on June 05, 2018 and had one of the sutures removed and he was started on Keflex. His been no drainage or streaking no pus. In the last couple of days the wound is been swelling a he even more and started to break open. He has been having a dressing on it and it has been staying relatively moist from sweating. Started good range of motion of his hand and his wrist. The pain is worse with movement better with rest. - History Of Current Complaint Chief Complaint: UCWounds Stated Complaint: NEEDS STITCHES CHECKED Time Seen by Provider: 06/09/18 20:09 Pain Intensity: 3 - Allergies/Home Medications Allergies/Adverse Reactions: Allergies Allergy/AdvReac Type Severity Reaction Status Date / Time amoxicillin Allergy Vomiting Verified 06/09/18 18:55 Penicillins Allergy Vomiting Verified 06/09/18 18:55 MOLD BASED PRODUCTS Allergy Vomiting Uncoded 06/09/18 18:55 PMH/Surg Hx/FS Hx/Imm Hx Previously Healthy: Yes - Surgical History Surgical History: Yes Surgery Procedure, Year, and Place: Bilateral Myringotomy tubes - Family History Known Family History: Positive: Cardiac Disease, Hypertension, Diabetes - Social History Alcohol Use: Rare Substance Use Type: None Smoking Status (MU): Never Smoked Tobacco Have You Smoked in the Last Year: No - Immunization History Most Recent Influenza Vaccination: Not UTD Most Recent Tetanus Shot: 2011 Review of Systems Constitutional: Negative Skin: Other - SEE HPI Eyes: Negative ENT: Negative Respiratory: Negative Cardiovascular: Negative Gastrointestinal: Negative Motor: Negative Neurovascular: Negative Musculoskeletal: Negative Neurological: Negative Psychological: Negative Is Patient Immunocompromised?: No All Other Systems Reviewed And Are Negative: Yes Physical Exam Triage Information Reviewed: Yes Appearance: Well-Appearing, No Pain Distress, Well-Nourished Vital Signs: Initial Vital Signs Temp 99 F 06/09/18 18:51 Pulse 90 06/09/18 18:51 Resp 16 06/09/18 18:51 BP 113/68 06/09/18 18:51 Pulse Ox 99 06/09/18 18:51 Vital Signs Reviewed: Yes Eye Exam: Normal Eyes: Positive: Conjunctiva Clear Neck exam: Normal Neck: Positive: Supple Respiratory: Positive: No respiratory distress Musculoskeletal Exam: Normal Musculoskeletal: Positive: Strength Intact, ROM Intact Neurological Exam: Normal Neurological: Positive: Alert, Muscle Tone Normal Psychological Exam: Normal Psychological: Positive: Normal Response To Family, Age Appropriate Behavior Skin: Positive: Other - And probable right hand there is a 1.5 cm laceration flap that is swollen. One half of it is starting too dehisce. There is no drainage no streaking no erythema the hand has full range of motion there are 3 sutures remaining. Hand/Wrist Course/Dx - Course Course Of Treatment: I removed the remaining 3 sutures. The plan will be mupirocin with dressing. And follow-up with orthopedic hands. - Differential Dx/Diagnosis Provider Diagnoses: RIGHT HAND WOUND DEHISCENCE Discharge - Sign-Out/Discharge Documenting (check all that apply): Patient Departure All imaging exams completed and their final reports reviewed: No Studies - Discharge Plan Condition: Stable Disposition: HOME Patient Education Materials: Wound Dehiscence (ED) Referrals: Merle Sykes MD [Primary Care Provider] - Marco Latham MD [Medical Doctor] - Additional Instructions: FOLLOW UP WITH ORTHOPEDICS HANDS. GET RECHECKED FOR ANY WORSENING OF YOUR CONDITION OR QUESTIONS OR CONCERNS. - Billing Disposition and Condition Condition: STABLE Disposition: Home
== END 2018-06-09 20:51 | disposition home or self-care (01) ==
LOC: UCEAST 18:44
DX: T81.33XD Disruption of traumatic injury wound repair, subsequent encounter (principal); Y83.8 Other surgical procedures as the cause of abnormal reaction of the patient, or of later complication, without mention of misadventure at the time of the procedure
CPT/HCPCS: 99212; G0463

== ENCOUNTER 2018-06-12 13:07 | Day surgery (SDC) | payer BC ==
[~2018-06-12 13:07] MED LIST: Buffered Lidocaine 0.9% SYRIN* 5 ML/SYR SYRINGE INTRADERM ONE; Dexamethasone IV* 4 MG/ML 1 ML (4 MG) IV SLOW PU ONE; Famotidine IV* 10 MG/ML 2 ML (20 mg) IV ONE
[2018-06-12] MEDS ORDERED: Clindamycin 900 MG/D5W BAG(*) 900 MG/50 ML BAG IVPB ONE (13:23)
[2018-06-12] MEDS ORDERED: Dexamethasone IV* 4 MG/ML 1 ML (4 MG) ONE (13:24)
[2018-06-12] MEDS ORDERED: Famotidine IV* 10 MG/ML 2 ML (20 mg) ONE (13:24)
[2018-06-12] MEDS ORDERED: Bupivacaine 0.25% SDV* 30 ML ONE (15:06)
[2018-06-12] MEDS ORDERED: fentaNYL* 50 MCG/ML 2 ML VIAL (100 MCG VIAL) ONE (16:17)
[2018-06-12] MEDS ORDERED: Lidocaine 2% PF * 5 ML VIAL ONE (16:17)
[2018-06-12] MEDS ORDERED: Ketorolac INJ* 30 MG/ML 1 ML VIAL ONE (16:17)
[2018-06-12] MEDS ORDERED: Propofol* 10 MG/ML 20 ML BTL IV PUSH ONE (16:17)
[2018-06-12] MEDS ORDERED: Midazolam* 1 MG/ML 5 ML VIAL (5 MG) ONE (16:17)
[2018-06-12] MEDS ORDERED: Naloxone* 0.4 MG/ML 1 ML VIAL IV PRN (16:26)
[2018-06-12] MEDS ORDERED: DiMENhydriNATE IV* 50 MG/ML VIAL IV PUSH PRN (16:26)
[2018-06-12] MEDS ORDERED: HYDROcodone/ACETAMIN 5-325 MG* 1 TAB PO PRN (16:26)
[2018-06-12] MEDS ORDERED: fentaNYL* 50 MCG/ML 2 ML VIAL (100 MCG VIAL) IV PRN (16:26)
[2018-06-12] MEDS ORDERED: oxyCODONE/Acetamin 5/325 MG* TAB PO PRN (16:26)
[2018-06-12 17:55] VITALS: BP 119/62
--- NOTE | 2018-06-13 11:33 | OP ---
DATE OF OPERATION: 06/12/18 - [facility] DATE OF : 89 SURGEON: Marco Latham MD NET LEAD ARCHITECT: JULIETA Chand ANESTHESIOLOGIST: Dr. Jones. ANESTHESIA: Local MAC. PRE-OP DIAGNOSIS: Right palm wound measuring 2 x 2 cm. POST-OP DIAGNOSIS: Right palm wound measuring 2 x 2 cm. OPERATIVE PROCEDURE: 1. Irrigation and debridement of right palm wound skin and subcutaneous tissue and fascia defect measuring 2 x 2 cm. 2. Closure of wound with distal and ulnar based U flap. INDICATIONS: Manas a couple of weeks ago had an injury with a broom handle and he has had a flap of tissue that is healed in a very poor position. One piece of skin is markedly elevated more than the other piece of skin. It is not infected, but it is very symptomatic to him and very troublesome having this in his palm. We had talked about risks and benefits, he wanted to proceed. ESTIMATED BLOOD LOSS: 2 mL. COMPLICATIONS: None. FINDINGS: See above and below. DESCRIPTION OF PROCEDURE: Manas was seen in the preoperative area. The correct side, site and procedure were identified. We came back to the operating room where the arm was prepped and draped in the usual fashion. A time-out was performed. The arm was exsanguinated with the Esmarch and the tourniquet inflated to 250 mmHg. I went ahead and reopened his prior wound with the tenotomy scissors. The edges consisted of very disorganized tissue. I went ahead and debrided back the skin edges and the subcutaneous tissue and some deep fascia, I got everything to sit down nice and flush and in the appropriate location. We then rotated the U flap into place. The skin was closed with 4-0 nylon suture. The edges were everted and opposed very nicely. The area was dressed with Xeroform , 4x4, sterile Webril and some Tam wrap. Tourniquet was deflated. The hand pinked up immediately. He was taken to the recovery room in stable condition. [id number]/[facility] #: [id number] [facility]
== END 2018-06-12 17:55 | disposition home or self-care (01) ==
LOC: OREAST 13:07
PROVIDERS: ATTEND Orthopaedic Surgery Hand Surgery
DX: S61.401A Unspecified open wound of right hand, initial encounter (principal); W26.8XXA Contact with other sharp object(s), not elsewhere classified, initial encounter; Y92.9 Unspecified place or not applicable
CPT/HCPCS: J1100; J1885; J2250; J2704; J3010

== ENCOUNTER 2018-07-31 17:30 | Emergency (ER) | payer BC ==
[2018-07-31 17:41] VITALS: BP 122/79
[2018-07-31] MEDS ORDERED: Ibuprofen TAB* 600 MG PO ONE (17:50)
--- NOTE | 2018-07-31 18:00 | UC ---
Respiratory Complaint HPI - HPI Summary HPI Summary: 33-year-old male comes in with a complaint of sinusitis and pneumonia symptoms. Patient's had an upper respiratory tract infection for approximately 5 weeks it's been getting worse. Getting frontal sinus and maxillary sinus headaches. Is gotten yellow-green rhinorrhea. In the last week or so it's gone into his chest and reminds her of when he had a pneumonia back in June 2017. It does hurt when he takes a deep breath. His last when he breathes shallow. He is taken ibuprofen which helped with the fever this morning. He has been having fevers. Does feel somewhat lightheaded. - History of Current Complaint Chief Complaint: UCGeneralIllness Stated Complaint: URI Time Seen by Provider: 07/31/18 17:36 Pain Intensity: 6 - Allergies/Home Medications Allergies/Adverse Reactions: Allergies Allergy/AdvReac Type Severity Reaction Status Date / Time amoxicillin Allergy Vomiting Verified 06/12/18 13:36 latex Allergy Rash And Verified 06/12/18 13:36 Itching Penicillins Allergy Vomiting Verified 06/12/18 13:36 MOLD BASED PRODUCTS Allergy Vomiting Uncoded 06/12/18 13:36 Home Medications: Home Medications Ibuprofen 600 mg PO ONCE 07/31/18 [History Confirmed 07/31/18] PMH/Surg Hx/FS Hx/Imm Hx Previously Healthy: Yes Respiratory History: Pneumonia - Surgical History Surgical History: Yes Surgery Procedure, Year, and Place: Bilateral Myringotomy tubes. RIGHT HAND - Family History Known Family History: Positive: Cardiac Disease, Hypertension, Diabetes - Social History Alcohol Use: Rare Substance Use Type: None Smoking Status (MU): Never Smoked Tobacco Have You Smoked in the Last Year: No - Immunization History Most Recent Influenza Vaccination: Not UTD Most Recent Tetanus Shot: 2011 Review of Systems All Other Systems Reviewed And Are Negative: Yes Constitutional: Positive: Fever Skin: Positive: Negative Eyes: Positive: Negative ENT: Positive: Sore Throat, Nasal Discharge, Sinus Congestion, Sinus Pain/ Tenderness Respiratory: Positive: Shortness Of Breath, Cough Cardiovascular: Positive: Chest Pain Gastrointestinal: Positive: Negative Motor: Positive: Negative Neurovascular: Positive: Negative Musculoskeletal: Positive: Negative Neurological: Positive: Negative Psychological: Positive: Negative Is Patient Immunocompromised?: No Physical Exam Triage Information Reviewed: Yes Appearance: No Pain Distress, Well-Nourished, Ill-Appearing - mild Vital Signs: Initial Vital Signs Temp 102 F 07/31/18 17:36 Pulse 107 07/31/18 17:36 Resp 20 07/31/18 17:36 BP 122/79 07/31/18 17:36 Pulse Ox 98 07/31/18 17:36 Vital Signs Reviewed: Yes Eye Exam: Normal Eyes: Positive: Conjunctiva Clear ENT: Positive: Pharyngeal erythema, Nasal congestion, Nasal drainage, TMs normal , Uvula midline Neck exam: Normal Neck: Positive: Supple Respiratory: Positive: Lungs clear, Normal breath sounds, No respiratory distress Cardiovascular: Positive: RRR Musculoskeletal Exam: Normal Musculoskeletal: Positive: Strength Intact, ROM Intact Neurological Exam: Normal Neurological: Positive: Alert, Muscle Tone Normal Psychological Exam: Normal Psychological: Positive: Age Appropriate Behavior Skin Exam: Normal UC Diagnostic Evaluation - Laboratory O2 Sat by Pulse Oximetry: 98 Respiratory Course/Dx - Course Course Of Treatment: Patient reports this feels like he has pneumonia. We discussed getting a chest x-ray and treating with antibiotics. At this time since her going to be treating with antibiotics he declined a chest x-ray. If the patient does not improve and returns consider a chest x-ray at that time. Patient reports that last year when he had this illness he was treated with different antibiotics and it wasn't until he had the antibiotic that was prescribed at the emergency department that he got better. He is allergic to penicillin. Last year June 16, 2017 he was prescribed Levaquin 750 mg by mouth daily for 10 days. I discussed we prescribing this a sinus symptoms today and the patient agreed. Plan is to follow-up primary care doctor if not completely improved go to the emergency department if worse return here if needed. - Differential Dx/Diagnosis Provider Diagnosis: Sinusitis, Bronchitis Discharge - Sign-Out/Discharge Documenting (check all that apply): Patient Departure All imaging exams completed and their final reports reviewed: No Studies - Discharge Plan Condition: Stable Disposition: HOME Prescriptions: Levofloxacin TAB* [Levaquin TAB*] 750 mg PO DAILY #10 tab Patient Education Materials: Sinusitis (ED), Acute Bronchitis (ED) Forms: *Work Release Referrals: Merle Sykes MD [Primary Care Provider] - Additional Instructions: FOLLOW UP WITH YOUR DOCTOR. GO TO THE EMERGENCY DEPARTMENT FOR ANY WORSENING OF YOUR CONDITION OR QUESTIONS OR CONCERNS. - Billing Disposition and Condition Condition: STABLE Disposition: Home
== END 2018-07-31 18:05 | disposition home or self-care (01) ==
LOC: UCEAST 17:30
DX: J32.9 Chronic sinusitis, unspecified (principal); J40 Bronchitis, not specified as acute or chronic; Z88.0 Allergy status to penicillin; Z91.040 Latex allergy status; Z91.048 Other nonmedicinal substance allergy status
CPT/HCPCS: 99212; A9270-GY; G0463

== ENCOUNTER 2018-09-11 18:54 | Emergency (ER) | payer BC ==
[2018-09-11 19:08] VITALS: BP 153/77
--- NOTE | 2018-09-11 19:17 | UC ---
Throat Pain/Nasal Sherif HPI - HPI Summary HPI Summary: 33 year old male presents with complaints of maxillary sinus pain/pressure, nasal congestion, and post-nasal drip. States he has been having issues with recurrent sinus infections. Was treated approximately 3 weeks ago with a course of azithromycin. Had improvement but symptoms did not completely resolve. Over past 5-7 days symptoms have been progressively worsened again. Denies fever, chills, ear pain, sore throat, cough, chest pain, or shortness of breath. - History of Current Complaint Chief Complaint: UCRespiratory Stated Complaint: SINUS CONGESTION, AND HEADACHE Time Seen by Provider: 09/11/18 19:06 Hx Obtained From: Patient Pain Intensity: 2 - Allergies/Home Medications Allergies/Adverse Reactions: Allergies Allergy/AdvReac Type Severity Reaction Status Date / Time amoxicillin Allergy Vomiting Verified 09/11/18 19:02 latex Allergy Rash And Verified 09/11/18 19:02 Itching Penicillins Allergy Vomiting Verified 09/11/18 19:02 MOLD BASED PRODUCTS Allergy Vomiting Uncoded 09/11/18 19:02 PMH/Surg Hx/FS Hx/Imm Hx Previously Healthy: Yes Respiratory History: Pneumonia - Surgical History Surgical History: Yes Surgery Procedure, Year, and Place: Bilateral Myringotomy tubes. RIGHT HAND - Family History Known Family History: Positive: Cardiac Disease, Hypertension, Diabetes - Social History Occupation: Employed Full-time Lives: With Family Alcohol Use: Rare Substance Use Type: None Smoking Status (MU): Never Smoked Tobacco Have You Smoked in the Last Year: No - Immunization History Most Recent Influenza Vaccination: Not UTD Most Recent Tetanus Shot: 2011 Review of Systems All Other Systems Reviewed And Are Negative: Yes Constitutional: Negative: Fever, Chills Eyes: Negative: Eye Redness, Photophobia ENT: Positive: Sore Throat, Nasal Discharge, Sinus Congestion, Sinus Pain/ Tenderness. Negative: Ear Ache Respiratory: Positive: Cough. Negative: Shortness Of Breath Cardiovascular: Negative: Palpitations, Chest Pain Gastrointestinal: Negative: Abdominal Pain, Vomiting, Diarrhea, Nausea Genitourinary: Positive: Negative Musculoskeletal: Positive: Negative Neurological: Positive: Negative Is Patient Immunocompromised?: No Physical Exam - Summary Physical Exam Summary: GENERAL APPEARANCE: Well developed, well nourished, alert and cooperative, and appears to be in no acute distress. EYES: Conjunctiva clear. No drainage. Vision is grossly intact. EARS: External auditory canals and tympanic membranes clear, hearing grossly intact. NOSE: Mild-moderate nasal congestion with mucosal erythema and edema. Maxillary sinus tenderness with percussion. THROAT: Oral cavity and pharynx normal. No inflammation, swelling, exudate, or lesions. Teeth and gingiva in good general condition. NECK: Neck supple, non-tender without lymphadenopathy. CARDIAC: Normal S1 and S2. No S3, S4 or murmurs. Rhythm is regular. There is no peripheral edema, cyanosis or pallor. Extremities are warm and well perfused. Capillary refill is less than 2 seconds. LUNGS: Clear to auscultation without rales, rhonchi, wheezing or diminished breath sounds. ABDOMEN: Positive bowel sounds. Soft, nondistended, nontender. No guarding or rebound. No masses or hepatosplenomegally. MUSKULOSKELETAL: ROM intact to all extremities. No joint erythema or tenderness. Normal muscular development. Normal gait. SKIN: Skin normal color, texture and turgor with no lesions or eruptions. Triage Information Reviewed: Yes Vital Signs: Initial Vital Signs Temp 98.4 F 09/11/18 18:58 Pulse 77 09/11/18 18:58 Resp 18 09/11/18 18:58 BP 153/77 09/11/18 18:58 Pulse Ox 96 09/11/18 18:58 Vital Signs Reviewed: Yes Throat Pain/Nasal Course/Dx - Course Course Of Treatment: 33 year old male presents with complaints of maxillary sinus pain/pressure, nasal congestion, and post-nasal drip. States he has been having issues with recurrent sinus infections. Was treated approximately 3 weeks ago with a course of azithromycin. Had improvement but symptoms did not completely resolve. Over past 5-7 days symptoms have been progressively worsened again. Denies fever, chills, ear pain, sore throat, cough, chest pain, or shortness of breath. Afebrile. Hypertensive but otherwise VSS. Exam reveals an adult male in no acute distress with maxillary sinus tenderness, mild- moderate nasal congestion, and otherwise unremarkable exam. Considering the duration and reoccurence of his symptoms with treat with 10 day course of doxycycline 100 mg BID as well as symptomatic treatment. He is to follow up with ENT if symptoms persist. Anticipatory guidance and warning symptoms reviewed with patient. Verbalizes understanding and agrees with POC. - Differential Dx/Diagnosis Differential Diagnosis/HQI/PQRI: Otitis Media, Pharyngitis, Sinusitis, URI Provider Diagnosis: Maxillary sinusitis Discharge - Sign-Out/Discharge Documenting (check all that apply): Patient Departure All imaging exams completed and their final reports reviewed: No Studies - Discharge Plan Condition: Stable Disposition: HOME Prescriptions: Doxycycline Hyclate 100 mg PO BID #20 tablet Fluticasone NASAL SPRAY 50MCG* [Flonase NASAL SPRAY 50MCG*] 2 spray BOTH NARES DAILY #1 btl Patient Education Materials: Sinusitis (ED) Referrals: Merle Sykes MD [Primary Care Provider] - (For recheck of blood pressure.) Seymour Hoyos MD [Medical Doctor] - 7 Days (If no improvement in symptoms. Call for an appointment.) Additional Instructions: Your history and exam are consistent with a sinus infection. Considering the duration of your symptoms I will treat the infection with an antibiotic. Start doxycycline 100 mg 1 tab twice a day for 10 days. Drink plenty of fluids to avoid dehydration especially if you are running any fever. Use a saline rinse kit such as Neti Pot or NeilMed at least twice a day to help thin secretions and promote drainage of the sinuses. Use fluticasone (Flonase) nasal spray 2 sprays each nostril once daily. Use an over the counter decongestant such as Sudafed according to directions to help with congestion. Take over the counter acetaminophen (Tylenol) or ibuprofen (Advil, Motrin) according to directions as needed for pain or fever. Follow up with ENT in 7 days if symptoms persist. Your blood pressure was elevated in the clinic tonight. It is recommended that you follow up with your primary care provider within 4 weeks to have this rechecked. Seek immediate medical attention in the emergency room if you have fever greater than 100.5 F despite taking acetaminophen or ibuprofen, have chest pain , difficulty breathing, are unable to swallow, or have any worsening of symptoms. - Billing Disposition and Condition Condition: STABLE Disposition: Home
== END 2018-09-11 19:30 | disposition home or self-care (01) ==
LOC: UCEAST 18:54
DX: J32.0 Chronic maxillary sinusitis (principal); Z87.01 Personal history of pneumonia (recurrent); Z91.040 Latex allergy status; Z88.0 Allergy status to penicillin; Z91.09 Other allergy status, other than to drugs and biological substances
CPT/HCPCS: 99212; G0463

== ENCOUNTER 2018-10-25 16:42 | Emergency (ER) | payer BC ==
[2018-10-25 17:03] VITALS: BP 137/77
--- NOTE | 2018-10-25 17:48 | UC ---
Nausea/Vomiting/Diarrhea HPI - HPI Summary HPI Summary: Onset yesterday of diffuse abdominal pain and nausea. Developed watery diarrhea in the middle of the night. States he is going every hour or more. No fever. No vomiting. Of note patient was on a course of doxycycline about 1 month ago for sinusitis. - History of Current Complaint Chief Complaint: UCGI Stated Complaint: STOMACH PAIN Time Seen by Provider: 10/25/18 17:16 Hx Obtained From: Patient Onset/Duration: Sudden Onset, Lasting Hours, Still Present Timing: Constant Severity Initially: Moderate Severity Currently: Moderate Pain Intensity: 7 Pain Scale Used: 0-10 Numeric Location: Diffuse Character: Dull Aggravating Factor(s): Nothing Alleviating Factor(s): Nothing Nausea/Vomiting Presence: Nauseated Diarrhea Presence: Yes Diarrhea Frequency: Every 1-2 hours Diarrhea Duration: 12-24 hours Diarrhea Characteristics: Watery - Allergies/Home Medications Allergies/Adverse Reactions: Allergies Allergy/AdvReac Type Severity Reaction Status Date / Time amoxicillin Allergy Vomiting Verified 10/25/18 17:04 latex Allergy Rash And Verified 10/25/18 17:04 Itching Penicillins Allergy Vomiting Verified 10/25/18 17:04 MOLD BASED PRODUCTS Allergy Vomiting Uncoded 10/25/18 17:04 PMH/Surg Hx/FS Hx/Imm Hx Previously Healthy: Yes - Surgical History Surgical History: Yes Surgery Procedure, Year, and Place: Bilateral Myringotomy tubes. RIGHT HAND - Family History Known Family History: Positive: Cardiac Disease, Hypertension, Diabetes - Social History Alcohol Use: Rare Substance Use Type: None Smoking Status (MU): Never Smoked Tobacco Have You Smoked in the Last Year: No - Immunization History Most Recent Influenza Vaccination: Not UTD Most Recent Tetanus Shot: 2011 Review of Systems All Other Systems Reviewed And Are Negative: Yes Constitutional: Positive: Negative Respiratory: Positive: Negative Cardiovascular: Positive: Negative Gastrointestinal: Positive: Abdominal Pain, Diarrhea, Nausea. Negative: Vomiting Genitourinary: Positive: Negative Physical Exam Triage Information Reviewed: Yes Appearance: Well-Appearing, No Pain Distress, Well-Nourished Vital Signs: Initial Vital Signs Temp 98.3 F 10/25/18 17:00 Pulse 88 10/25/18 17:00 Resp 12 10/25/18 17:00 BP 137/77 10/25/18 17:00 Pulse Ox 100 10/25/18 17:00 Vital Signs Reviewed: Yes Eyes: Positive: Conjunctiva Clear ENT: Positive: Hearing grossly normal, Pharynx normal, TMs normal Neck: Positive: Supple, Nontender, No Lymphadenopathy Respiratory Exam: Normal Cardiovascular Exam: Normal Abdomen Description: Positive: Soft, Other: - MILD DIFFUSE TENDERNESS. NO REBOUND OR RIGIDITY. Negative: CVA Tenderness (R), CVA Tenderness (L), Distended, Guarding Bowel Sounds: Positive: Present Musculoskeletal: Positive: No Edema Neurological: Positive: Alert Psychological: Positive: Age Appropriate Behavior Skin: Negative: Rashes Naus/Vom/Diarrhea Course/Dx - Course Course Of Treatment: PATIENT LIKELY HAS VIRAL GASTROENTERITIS. ZOFRAN FOR NAUSEA. ENCOURAGED HYDRATION AND EASY DIET UNTIL SYMPTOMS IMPROVE. GIVEN PATIENT'S RELATIVELY RECENT COURSE OF DOXYCYCLINE HAVE STRONGLY ENCOURAGED HIM TO SEEK REEVALUATION IF HIS SYMPTOMS ARE WORSENING OR NOT IMPROVED AFTER SEVERAL DAYS. IF HE DOES NOT IMPROVE EXPECTED WOULD CONSIDER STOOL STUDIES. - Differential Dx/Diagnosis Provider Diagnosis: Gastroenteritis Condition At Discharge: Stable Discharge - Sign-Out/Discharge Documenting (check all that apply): Patient Departure All imaging exams completed and their final reports reviewed: No Studies - Discharge Plan Condition: Stable Disposition: HOME Prescriptions: Ondansetron ODT TAB* [Zofran Odt TAB*] 4 mg PO Q6H PRN #20 tab.odt PRN Reason: Nausea/Vomiting Patient Education Materials: Gastroenteritis (ED) Forms: *Work Release Referrals: No Primary Care Phys,NOPCP [Primary Care Provider] - Additional Instructions: GASTROENTERITIS: You have gastroenteritis ("intestinal flu"). This disease is usually caused by a virus. There is no specific treatment. The disease will end by itself. For now, the main danger is dehydration. Give clear liquids. Examples include Pedialyte, Gatorade, clear broth, juices, flat sodas, and jello water. Medications may be prescribed by the physician for special cases. Once tolerated, the clear liquid diet may be supplemented with rice, cereal, toast, applesauce, or bananas. GO TO [facility] WITHOUT FAIL if vomiting increases or blood appears in the bowel movement or vomitus; if you fail to improve, or if signs of dehydration occur (tongue and mouth become dry, lethargy). ENSURE ADEQUATE HYDRATION. CLEAR LIQUIDS, BLAND DIET. AVOID CAFFEINE, DAIRY, GREASY, SPICY FOODS. ONCE YOU ARE TOLERATING CLEAR LIQUIDS YOU CAN ADVANCE TO SIMPLE, BLAND FOODS. CALL THE NUMBER BELOW FOR ASSISTANCE IN ESTABLISHING WITH A PCP An additional resource available to assist in finding the appropriate physician for your health care needs is the [facility] ([facility]). You may contact them by calling [phone]. - Billing Disposition and Condition Condition: STABLE Disposition: Home
== END 2018-10-25 17:43 | disposition home or self-care (01) ==
LOC: UCEAST 16:42
DX: K52.9 Noninfective gastroenteritis and colitis, unspecified (principal); Z91.09 Other allergy status, other than to drugs and biological substances; Z88.0 Allergy status to penicillin; Z91.040 Latex allergy status
CPT/HCPCS: 99212; G0463

== ENCOUNTER 2018-12-07 15:40 | Emergency (ER) | payer BC ==
--- OUTSIDE RECORDS SUMMARY | 2018-12-07 15:46 | XMS REPORT | Continuity of Care Document ---
:1985 External Reference #:[id number] Author Name Evelin Sierra PA-C Address [address] [address] Care Team Providers Name Role Phone Nacho Aguirre M.D. 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 Tobacco Use Start: Unknown Never Smoked Cigarettes Tobacco Use Start: Unknown Never Smoked Cigars Tobacco Use Start: Unknown Never Smoked A Pipe Smokeless Tobacco Never Used Smokeless Tobacco ETOH Use Denies alcohol use Tobacco Use Start: Unknown Patient has never smoked Smoking Status Reviewed: 11/12/18 Patient has never smoked Allergies, Adverse Reactions, Alerts Date Description Reaction Status Severity Comments 11/12/2018 Penicillin Active 11/12/2018 Amoxicillin Active 11/12/2018 Mold Based Medications Active Medications Medication Date Status Form Strength Qnty SIG Indications Ordering Provider Tylenol Active Capsules 325mg as directed Unknown 000 [facility] Vitamin Active Tablets 1000mcg Unknown B12 000 Immunizations Description No Information Available Vital Signs Description No Information Available Results Description No Information Available Procedures Description No Information Available Encounters Type Date Location Provider Dx Diagnosis Office Visit 11/12/2018 [place],After Evelin Sierra J32.8 Other chronic 10:30a 08/12/07 [place] sinusitis J30.2 Other seasonal allergic rhinitis Plan of Treatment 11/12/2018 - [place] BenitesCJ32.8 Other chronic [id number] Other seasonal allergic rhinitisFollow up:1 month with allergy testing prior.
[2018-12-07 15:54] VITALS: BP 133/72
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
== END 2018-12-07 16:28 | disposition home or self-care (01) ==
LOC: UCEAST 15:40
DX: S06.0X0A Concussion without loss of consciousness, initial encounter (principal); Z88.0 Allergy status to penicillin; Z91.040 Latex allergy status; Z91.09 Other allergy status, other than to drugs and biological substances; X58.XXXA Exposure to other specified factors, initial encounter; Y92.9 Unspecified place or not applicable
CPT/HCPCS: 99211; G0463

== ENCOUNTER 2018-12-22 08:58 | Emergency (ER) | payer BC ==
[2018-12-22 09:34] VITALS: BP 111/73
--- NOTE | 2018-12-22 10:08 | UC ---
Throat Pain/Nasal Sherif HPI - HPI Summary HPI Summary: Sore throat and head congestion over the past week. One child at home has strep pharyngitis. - History of Current Complaint Chief Complaint: UCGeneralIllness Stated Complaint: FEVER THROAT PAIN Time Seen by Provider: 12/22/18 09:38 Hx Obtained From: Patient Onset/Duration: Gradual Onset Severity: Mild Pain Intensity: 5 Cough: None Associated Signs & Symptoms: Positive: Negative - Allergies/Home Medications Allergies/Adverse Reactions: Allergies Allergy/AdvReac Type Severity Reaction Status Date / Time amoxicillin Allergy Vomiting Verified 12/22/18 09:34 latex Allergy Rash And Verified 12/22/18 09:34 Itching Penicillins Allergy Vomiting Verified 12/22/18 09:34 MOLD BASED PRODUCTS Allergy Vomiting Uncoded 12/22/18 09:34 PMH/Surg Hx/FS Hx/Imm Hx Previously Healthy: Yes - Surgical History Surgical History: Yes Surgery Procedure, Year, and Place: eustachian tubes as a child. RIGHT HAND - Family History Known Family History: Positive: Cardiac Disease, Hypertension, Diabetes - Social History Alcohol Use: Rare Substance Use Type: None Smoking Status (MU): Never Smoked Tobacco Have You Smoked in the Last Year: No - Immunization History Most Recent Influenza Vaccination: Not UTD Most Recent Tetanus Shot: 2011 Review of Systems All Other Systems Reviewed And Are Negative: Yes Constitutional: Positive: Fever ENT: Positive: Sore Throat Is Patient Immunocompromised?: No Physical Exam Triage Information Reviewed: Yes Appearance: Well-Appearing, No Pain Distress, Well-Nourished Vital Signs: Initial Vital Signs Temp 98.4 F 12/22/18 09:30 Pulse 64 12/22/18 09:30 Resp 18 12/22/18 09:30 BP 111/73 12/22/18 09:30 Pulse Ox 97 12/22/18 09:30 Vital Signs Reviewed: Yes Eye Exam: Normal ENT: Positive: Normal ENT inspection, Hearing grossly normal, Pharynx normal, TMs normal, Uvula midline. Negative: Tonsillar swelling, Tonsillar exudate, Trismus, Muffled voice, Hoarse voice Neck exam: Normal Neck: Positive: Supple, Nontender, No Lymphadenopathy Respiratory: Positive: Lungs clear, Normal breath sounds, No respiratory distress, No accessory muscle use Cardiovascular: Positive: RRR, No Murmur, Pulses Normal, Brisk Capillary Refill Abdominal Exam: Normal Abdomen Description: Positive: Nontender, No Organomegaly, Soft Bowel Sounds: Positive: Present Musculoskeletal Exam: Normal Neurological Exam: Normal Psychological Exam: Normal Skin Exam: Normal Throat Pain/Nasal Course/Dx - Course Course Of Treatment: Rapid strep test was negative. He is to do warm saltwater gargles, throat lozenges take Tylenol or Motrin for pain. Definite follow up with his primary care provider if no improvement in 3 or 4 days. - Differential Dx/Diagnosis Provider Diagnosis: Pharyngitis Discharge - Sign-Out/Discharge Documenting (check all that apply): Patient Departure All imaging exams completed and their final reports reviewed: No Studies - Discharge Plan Condition: Fair Disposition: HOME Patient Education Materials: Pharyngitis (ED) Referrals: Care [facility] [Outside] No Primary Care Phys,NOPCP [Primary Care Provider] - Additional Instructions: Increase fluids, take Claritin daily, you may also want to try Flonase 2 sprays in each nostril once a day for one week and then decrease to 1 spray in each nostril once a day throughout your allergy season. If you continue to have a sore throat and fever in 2 or 3 days and he should be rechecked. - Billing Disposition and Condition Condition: FAIR Disposition: Home - Attestation Statements Provider Attestation: I was available for consult. This patient was seen by the GENNY. The patient was not presented to, seen by, or examined by me. -Justin
== END 2018-12-22 10:20 | disposition home or self-care (01) ==
LOC: UCEAST 08:58
DX: J02.9 Acute pharyngitis, unspecified (principal); R50.9 Fever, unspecified; R09.89 Other specified symptoms and signs involving the circulatory and respiratory systems; Z91.040 Latex allergy status; Z88.0 Allergy status to penicillin; Z91.09 Other allergy status, other than to drugs and biological substances
CPT/HCPCS: 87651; 99211; G0463

== ENCOUNTER 2019-01-28 15:22 | Emergency (ER) | payer BC, OTHER ==
[2019-01-28 15:34] VITALS: BP 121/73
--- NOTE | 2019-01-28 16:37 | UC ---
UC General HPI - HPI Summary HPI Summary: 33-year-old male Comes in with a chief complaint of left facial swelling and pain. This started this morning. Swelling in the pain is at the angle of the left jaw. Pain worse with palpation and movement of the jaw. No fevers or chills. No upper respiratory tract infection symptoms. No ear pain. - History of Current Complaint Chief Complaint: UCEar Stated Complaint: JAW PAIN Time Seen by Provider: 01/28/19 16:06 Pain Intensity: 6 - Allergy/Home Medications Allergies/Adverse Reactions: Allergies Allergy/AdvReac Type Severity Reaction Status Date / Time amoxicillin Allergy Vomiting Verified 01/28/19 15:35 latex Allergy Rash And Verified 01/28/19 15:35 Itching Penicillins Allergy Vomiting Verified 01/28/19 15:35 MOLD BASED PRODUCTS Allergy Vomiting Uncoded 01/28/19 15:35 Home Medications: Home Medications Aspirin/Acetaminophen/Caffeine [Excedrin Migraine Caplet] 1 each PO Q6H [History Confirmed 01/28/19] Fluticasone NASAL SPRAY 50MCG* [Flonase NASAL SPRAY 50MCG*] 2 spray BOTH NARES DAILY 01/28/19 [History Confirmed 01/28/19] PMH/Surg Hx/FS Hx/Imm Hx Previously Healthy: Yes - Surgical History Surgical History: Yes Surgery Procedure, Year, and Place: eustachian tubes as a child. RIGHT HAND - Family History Known Family History: Positive: Cardiac Disease, Hypertension, Diabetes - Social History Alcohol Use: Rare Substance Use Type: None Smoking Status (MU): Never Smoked Tobacco Have You Smoked in the Last Year: No - Immunization History Most Recent Influenza Vaccination: Not UTD Most Recent Tetanus Shot: 2011 Review of Systems All Other Systems Reviewed And Are Negative: Yes Constitutional: Positive: Negative Skin: Positive: Negative Eyes: Positive: Negative ENT: Positive: Other - SEE HPI Respiratory: Positive: Negative Cardiovascular: Positive: Negative Gastrointestinal: Positive: Negative Motor: Positive: Negative Neurovascular: Positive: Negative Musculoskeletal: Positive: Negative Neurological: Positive: Negative Psychological: Positive: Negative Is Patient Immunocompromised?: No Physical Exam Triage Information Reviewed: Yes Appearance: Well-Appearing, No Pain Distress, Well-Nourished Vital Signs: Initial Vital Signs Temp 98.7 F 01/28/19 15:30 Pulse 75 01/28/19 15:30 Resp 16 01/28/19 15:30 BP 121/73 01/28/19 15:30 Pulse Ox 99 01/28/19 15:30 Vital Signs Reviewed: Yes Eye Exam: Normal Eyes: Positive: Conjunctiva Clear ENT: Positive: Pharynx normal, TMs normal, Uvula midline, Other - OROPHARYNX OPEN. Negative: Tonsillar swelling Dental Exam: Normal Dental: Negative: Percussion Tenderness @ Neck: Positive: Supple, Other: - There is swelling and tenderness at the angle of the left jaw. It's in the area of the posterior parotid gland. There is no ear canal swelling. No erythema no rash. Respiratory: Positive: Lungs clear, Normal breath sounds, No respiratory distress Cardiovascular: Positive: RRR Musculoskeletal: Positive: Strength Intact, ROM Intact Neurological: Positive: Alert, Muscle Tone Normal Psychological: Positive: Age Appropriate Behavior Skin Exam: Normal Course/Dx - Course Course Of Treatment: The swelling is in the area of the posterior aspect of the left parotid gland. Sialoadenitis is a possible cause as is also muscle spasm associated with TMJ. No evidence of any dental infection. Plan is to treat for sialoadenitis. Patient is allergic to penicillin therefore we'll use clindamycin. We also discussed using sour candies and gentle massage. For the possibility of TMJ views and anti-inflammatory and then if there is a muscle spasm Flexeril may be helpful. Overall plan is to follow-up his primary care doctor get reevaluated sooner if worse or any questions or concerns. - Diagnoses Provider Diagnosis: Left-sided face pain, Swelling of left side of face Discharge - Sign-Out/Discharge Documenting (check all that apply): Patient Departure All imaging exams completed and their final reports reviewed: No Studies - Discharge Plan Condition: Stable Disposition: HOME Prescriptions: Clindamycin Cap(NF) [Clindamycin Cap 300 mg Cap(NF)] 300 mg PO TID #30 cap Cyclobenzaprine TAB* [Flexeril 10 MG TAB*] 10 mg PO TID PRN #15 tab MDD 3 PRN Reason: Pain Patient Education Materials: Temporomandibular Disorder (ED), Sialoadenitis (ED ) Referrals: [facility] [Outside] Additional Instructions: FOLLOW UP WITH YOUR DOCTOR IF NOT COMPLETELY IMPROVED. GET RECHECKED SOONER IF YOUR CONDITION WORSENS OR ANY QUESTIONS OR CONCERNS. - Billing Disposition and Condition Condition: STABLE Disposition: Home
== END 2019-01-28 16:46 | disposition home or self-care (01) ==
LOC: UCEAST 15:22
DX: R51 Headache (principal); R22.0 Localized swelling, mass and lump, head; Z88.0 Allergy status to penicillin; Z91.040 Latex allergy status; Z79.82 Long term (current) use of aspirin
CPT/HCPCS: 99212; G0463

== ENCOUNTER 2019-05-13 23:50 | Emergency (ER) | payer BC ==
[2019-05-14] MEDS ORDERED: NS 0.9% 1000 ML** 1,000 ML IV ONE (00:14)
--- NOTE | 2019-05-14 00:20 | ED ---
Complex/Multi-Sys Presentation - HPI Summary HPI Summary: Pt is a 34 y/o M presenting to the ED with a chief complaint of multiple symptoms. He states he was talking to his fiance in his basement when he put his R arm over his head and lost feeling in his hand. The numbness spread to his arm, and he had surgery last year on the R hand that did not heal properly so he tried stretches but they did not help. He then reports his heart beating very fast, however he notes he had a coffee, 5-hour energy, and two Excedrin today, which is much more caffeine than he is used to. 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 He denies fever, vomiting, or diarrhea. - History Of Current Complaint Chief Complaint: EDGeneral Time Seen by Provider: 05/13/19 23:57 Hx Obtained From: Patient Onset/Duration: Sudden Onset, Lasting Hours, Still Present Timing: Constant, Hours Severity Currently: None Severity Initially: Mild Associated Signs And Symptoms: Positive: Palpitations, Nausea, Other - increased stress and caffeine intake. Negative: Vomiting, Diarrhea, Fever - Allergies/Home Medications Allergies/Adverse Reactions: Allergies Allergy/AdvReac Type Severity Reaction Status Date / Time amoxicillin Allergy Vomiting Verified 01/28/19 15:35 latex Allergy Rash And Verified 01/28/19 15:35 Itching Penicillins Allergy Vomiting Verified 01/28/19 15:35 MOLD BASED PRODUCTS Allergy Vomiting Uncoded 01/28/19 15:35 Home Medications: Home Medications NK [No Home Medications Reported] 05/14/19 [History Confirmed 05/14/19] PMH/Surg Hx/FS Hx/Imm Hx Previously Healthy: Yes Endocrine/Hematology History: Denies: Hx Diabetes, Hx Thyroid Disease Cardiovascular History: Denies: Hx Hypertension Respiratory History: Denies: Hx Asthma, Hx Chronic Obstructive Pulmonary Disease (COPD) GI History: Reports: Hx Gastroesophageal Reflux Disease - PT STATES "REALLY BAD 8 YEARS AGO TREATED WITH MEDS" Denies: Hx Ulcer History: Reports: Hx Kidney Stones - PT STATES "TWICE NONE IN THE PAST 6 YEARS" Denies: Hx Renal Disease Musculoskeletal History: Reports: Hx Tendonitis - RIGHT LEG Sensory History: Reports: Hx Contacts or Glasses - WEARS BOTH Opthamlomology History: Reports: Hx Contacts or Glasses - WEARS BOTH - Surgical History Surgery Procedure, Year, and Place: eustachian tubes as a child. 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 Negative: Fever Positive: Palpitations Positive: Nausea. Negative: Vomiting, Diarrhea Neurological: Other - lightheadedness Positive: Paresthesia, Numbness Positive: Other - increase in stress All Other Systems Reviewed And Are Negative: Yes Physical Exam - Summary Physical Exam Summary: Constitutional: Well-developed, Well-nourished, Alert. (-) Distressed Skin: Warm, Dry HENT: Normocephalic; Atraumatic Eyes: Conjunctiva normal Neck: Musculoskeletal ROM normal neck. (-) JVD, (-) Stridor, (-) Tracheal deviation Cardio: Rhythm regular, rate normal, Heart sounds normal; Intact distal pulses. Radial pulses are 2+ and symmetric. (-) Murmur Pulmonary/Chest wall: Effort normal. (-) Respiratory distress, (-) Wheezes, (-) Rales Abd: Soft. (-) Tenderness, (-) Distension, (-) Guarding, (-) Rebound Musculoskeletal: (-) Edema Lymph: (-) Cervical adenopathy Neuro: Alert, Oriented x3, Strength normal, Cranial nerves II-XII are grossly intact. (-) Dysmetria, (-) Nystagmus, (-) Ataxia by finger to nose testing, (-) Sensory deficit. Psych: Mood and affect Normal Triage Information Reviewed: Yes Vital Signs On Initial Exam: Initial Vitals Temp Pulse Resp BP Pulse Ox 99 F 98 16 134/83 98 05/13/19 23:55 05/13/19 23:55 05/13/19 23:55 05/13/19 23:55 05/13/19 23:55 Vital Signs Reviewed: Yes Procedures - Sedation Patient Received Moderate/Deep Sedation with Procedure: No Diagnostics - Vital Signs Vital Signs Temp Pulse Resp BP Pulse Ox 05/13/19 23:55 99 F 98 16 134/83 98 - Laboratory Result Diagrams: 05/14/19 00:26 05/14/19 00:26 Lab Statement: Any lab studies that have been ordered have been reviewed, and results considered in the medical decision making process. Complex Multi-Symp Course/Dx Course Of Treatment: Patient is here with what seems like a panic attack. Patient had tingling in his hand was not consistent with a nerve distribution from his brain. Patient was tachycardic on arrival but that improved. Patient blood performed which showed an elevated T bili. Patient's had this in the past never been worked up for this. Patient's symptoms are likely not from this elevated T bili. Patient did have thyroid studies which showed evidence of hyperthyroidism. He was not thyroid storm. Patient was given care instructions for follow-up and referred for PCP. - Diagnoses Provider Diagnoses: Hyperthyroidism, Total bilirubin, elevated, Palpitations Discharge ED - Sign-Out/Discharge Documenting (check all that apply): Patient Departure - Discharge Plan Condition: Stable Disposition: HOME Patient Education Materials: Heart Palpitations (ED), Hyperthyroidism (ED) Forms: *Work Release Referrals: Care [facility] [Outside] Additional Instructions: Please make a follow up appointment with [facility] within the next 1-3 days. You need to have a primary care provider help you maintain your hyperthyroidism, and find out why your total bilirubin was high. Come back to the emergency department with any new or worsening symptoms, including palpitations. - Billing Disposition and Condition Condition: STABLE Disposition: Home - Attestation Statements Document Initiated by Scribe: Yes Documenting Scribe: Mary Marin Provider For Whom Bryson is Documenting (Include Credential): Dannie Dienro MD. Scribe Attestation: Mary Kent, scribed for Dannie Dinero MD. on 05/14/19 at 0502. Scribe Documentation Reviewed: Yes Provider Attestation: The documentation as recorded by the scribe, Mary O'Samir accurately reflects the service I personally performed and the decisions made by me, Dannie Dinero MD. Status of Scribe Document: Viewed
[2019-05-14 00:34] LABS: ABS Eosinophils 0.1 10^3/ul (0-0.6); ABS Lymphocytes 1.8 10^3/ul (1.0-4.8); ABS Monocytes 0.8 10^3/ul (0-0.8); ABS Neutrophils 2.7 10^3/ul (1.5-7.7); Eosinophil % 2.2 %; Hematocrit 39 % (42-52); Hemoglobin 13.8 g/dL (14.0-18.0); Lymphocyte % 32.6 %; Mean Corpuscular HGB Conc 35 g/dL (31-36); Mean Corpuscular Hemoglobin 30 pg (27-31); Mean Corpuscular Volume 84 fL (80-94); Mean Platelet Volume 7.3 fL (7.4-10.4); Nucleated Red Blood Cells % 0.1; Platelet Count 265 10^3/uL (150-450); Red Blood Count 4.67 10^6 /uL (4.18-5.48); Red Cell Distribution Width 14 % (10-15); White Blood Count 5.4 10^3/uL (3.5-10.8)
[2019-05-14 00:50] LABS: Albumin 3.8 g/dL (3.2-5.2); Albumin/Globulin Ratio 1.7 (1-3); BUN/Creatinine Ratio 22.6 (8-20); Calcium 8.9 mg/dL (8.6-10.3); EGFR African American 128.1 (>60); EGFR Non-African American 105.9 (>60); Globulin 2.2 g/dL (2-4); Potassium 3.4 mmol/L (3.5-5.0); Total Bilirubin 2.3 mg/dL (0.2-1.0)
[2019-05-14 00:52] LABS: Troponin I 0.01 ng/mL (<0.04)
[2019-05-14 02:38] LABS: Free T4 3.35 ng/dL (0.61-1.12)
[2019-05-14 03:25] VITALS: BP 130/72
== END 2019-05-14 03:28 | disposition home or self-care (01) ==
LOC: ED 23:50
DX: E05.90 Thyrotoxicosis, unspecified without thyrotoxic crisis or storm (principal); E80.7 Disorder of bilirubin metabolism, unspecified; R00.2 Palpitations; K21.9 Gastro-esophageal reflux disease without esophagitis; Z87.442 Personal history of urinary calculi; Z88.0 Allergy status to penicillin; Z88.1 Allergy status to other antibiotic agents; Z91.040 Latex allergy status
CPT/HCPCS: 36415; 80053; 84439; 84443; 84484; 85025; 93005; 96360; 99283

== ENCOUNTER 2019-05-16 21:55 | Emergency (ER) | payer BC ==
--- NOTE | 2019-05-16 22:40 | ED ---
Palpitations / Dysrhythmia - HPI Summary HPI Summary: This patient is a 34 year old M presenting to [facility] accompanied by male friend with a chief complaint of 3 episodes of near-syncope since 05/14/19. Symptoms aggravated by nothing. Symptoms alleviated by nothing. Patient reports he came to ED last by EMS due to feeling like he was going to pass out and heart was going. Pt reports dx was overactive thyroid. Pt reports driving early in today when he started having another panic attack as he was going to turn right at intersection. Reports feeling like swimming, hand was numb, body started to go numb, felt like going to pass out. Pt reports this episode passed quickly after trying to breath. 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 Pt reports chest aches described as uncomfortable. Pt denies syncope. Pt reports feeling normal between spells except when he feels aches occasionally. No meds taken, denies smoking and drugs , drinks rarely. Reports more stress lately, diet has been unchanged, no nutritional supplements. - History of Current Complaint Chief Complaint: EDDysrhythmPalp Time Seen by Provider: 05/16/19 22:24 Hx Obtained From: Patient Onset/Duration: Lasting Days, Still Present Aggravating: Nothing Alleviating: Nothing - Allergy/Home Medications Allergies/Adverse Reactions: Allergies Allergy/AdvReac Type Severity Reaction Status Date / Time amoxicillin Allergy Vomiting Verified 05/16/19 21:59 latex Allergy Rash And Verified 05/16/19 21:59 Itching Penicillins Allergy Vomiting Verified 05/16/19 21:59 MOLD BASED PRODUCTS Allergy Vomiting Uncoded 05/16/19 21:59 PMH/Surg Hx/FS Hx/Imm Hx Endocrine/Hematology History: Denies: Hx Diabetes, Hx Thyroid Disease Cardiovascular History: Denies: Hx Hypertension Respiratory History: Denies: Hx Asthma, Hx Chronic Obstructive Pulmonary Disease (COPD) GI History: Reports: Hx Gastroesophageal Reflux Disease - PT STATES "REALLY BAD 8 YEARS AGO TREATED WITH MEDS" Denies: Hx Ulcer History: Reports: Hx Kidney Stones - PT STATES "TWICE NONE IN THE PAST 6 YEARS" Denies: Hx Renal Disease Musculoskeletal History: Reports: Hx Tendonitis - RIGHT LEG Sensory History: Reports: Hx Contacts or Glasses - WEARS BOTH Opthamlomology History: Reports: Hx Contacts or Glasses - WEARS BOTH - Surgical History Surgery Procedure, Year, and Place: eustachian tubes as a child. RIGHT HAND Hx Anesthesia Reactions: No Infectious Disease History: No Infectious Disease History: Denies: Hx Clostridium Difficile, Hx Hepatitis, Hx Human Immunodeficiency Virus (HIV), Hx of Known/Suspected MRSA, Hx Shingles, Hx Tuberculosis, Hx Known/ Suspected VRE, Hx Known/Suspected VRSA, History Other Infectious Disease, Traveled Outside the [place] in Last 30 Days - Family History Known Family History: Positive: Cardiac Disease, Hypertension, Diabetes - Social History Alcohol Use: Rare Hx Substance Use: No Substance Use Type: Reports: None Hx Tobacco Use: No Smoking Status (MU): Never Smoked Tobacco Have You Smoked in the Last Year: No Review of Systems Positive: Other - heart "going", chest aches Neurological: Other - near-syncope Positive: Numbness - body and hand All Other Systems Reviewed And Are Negative: Yes Physical Exam - Summary Physical Exam Summary: Appearance: Well-appearing, Well-nourished, lying in bed comfortable Skin: Warm, dry, no obvious rash Eyes: sclera anicteric, no conjunctival pallor ENT: mucous membranes moist Neck: deferred Respiratory: No signs of respiratory distress Cardiovascular: Appears well perfused, pulses are nml Abdomen: deferred Musculoskeletal: Moving all 4 extremities without obvious discomfort Neurological: Awake and alert, mentation is normal, speech is fluent and appropriate Psychiatric: affect is normal, does not appear anxious or depressed Triage Information Reviewed: Yes Vital Signs On Initial Exam: Initial Vitals Temp Pulse Resp BP Pulse Ox 98.2 F 83 15 140/89 98 05/16/19 21:57 05/16/19 21:57 05/16/19 21:57 05/16/19 21:57 05/16/19 21:57 Vital Signs Reviewed: Yes Procedures - Sedation Patient Received Moderate/Deep Sedation with Procedure: No - Lets Diagnostics - Vital Signs Vital Signs Temp Pulse Resp BP Pulse Ox 05/16/19 21:57 98.2 F 83 15 140/89 98 - Laboratory Lab Statement: Any lab studies that have been ordered have been reviewed, and results considered in the medical decision making process. - EKG 2202 Cardiac Rate: NL - 70 BPM Summary of EKG Findings: NSR at 70 BPM, P waves, QRS complex, and T waves are within normal limits, T waves and intervals are normal, no ischemic changes. non -STEMI. This is a normal EKG. Re-Evaluation - Re-Evaluation First Eval Re-Evaluation Time: 22:34 Comment: Physician discusses plan of care. Course/Dx - Course Course Of Treatment: This patient is a 34 year old M presenting to [facility] accompanied by male friend with a chief complaint of 3 episodes of near-syncope since 05/14/19. Patient reports he came to ED last by EMS due to feeling like he was going to pass out and heart was going. Pt reports dx was overactive thyroid. Pt reports early today had another panic attack described as feeling like swimming, hand was numb, body started to go numb, felt like going to pass out. Pt reports this episode passed quickly after trying to breath. Pt reports that he was working tonight when felt like he was going to pass out suddenly and needed to sit down. Pt reports chest aches described as uncomfortable. Pt denies syncope. Physical Exam Findings shows no abnormalities. An EKG reveals NSR at 70 BPM, P waves, QRS complex, and T waves are within normal limits, T waves and intervals are normal, no ischemic changes. non-STEMI. This is a normal EKG. Patient at present is showing no signs of thyrotoxicosis or thyroid storm, so whether his symptoms are referable to hyperthyroidism is somewhat unclear, but I did go over this with him and urged him to followup with an plastic extrusion operator or software publisher for further evaluation. Patient will be discharged. The patient is agreeable with this plan. - Diagnoses Provider Diagnoses: Near syncope, Hyperthyroidism Discharge ED - Sign-Out/Discharge Documenting (check all that apply): Patient Departure - discharge - Discharge Plan Condition: Stable Disposition: HOME Prescriptions: Propranolol TAB* [Inderal TAB*] 20 mg PO BID #60 tab Patient Education Materials: Hyperthyroidism (ED), Near Syncope (ED) Referrals: No Primary Care Phys,NOPCP [Primary Care Provider] - Additional Instructions: There is a chance that your present symptoms are related to your thyroid condition, so until you can get a more in depth workup I think it is reasonable to start you on a beta rosetta that can blunt some of the effects of the excess thyroid hormone. For now this is somewhat of a bandaid, you will need to have more involved testing of the thyroid to get a more precise diagnosis and proper treatment, so it's good you have that appointment coming up in a couple of weeks. In the meantime, you do not necessarily need to come back to the hospital if you have a spell like today, but if your symptoms are becoming much more pronounced and severe, we should see you back to make sure the thyroid condition is not rapidly progressing. - Billing Disposition and Condition Condition: STABLE Disposition: Home - Attestation Statements Document Initiated by Bryson: Yes Documenting Demetriusibe: Marlin Layne Provider For Whom Bryson is Documenting (Include Credential): Dr. Amado Jacob MD Scribe Attestation: I, Marlin Layne scribed for Dr. Amado Jacob MD on 05/17/19 at 1847. Scribe Documentation Reviewed: Yes Provider Attestation: The documentation as recorded by the Marlin malone accurately reflects the service I personally performed and the decisions made by me, Dr. Amado Jacob MD Status of Scrdaniele Document: Viewed
[2019-05-16 23:06] VITALS: BP 110/65
== END 2019-05-16 23:00 | disposition home or self-care (01) ==
LOC: ED 21:55
DX: R55 Syncope and collapse (principal); E05.90 Thyrotoxicosis, unspecified without thyrotoxic crisis or storm; K21.9 Gastro-esophageal reflux disease without esophagitis; Z88.0 Allergy status to penicillin; Z88.1 Allergy status to other antibiotic agents; Z91.040 Latex allergy status
CPT/HCPCS: 93005; 99283

== ENCOUNTER 2019-07-22 12:47 | Emergency (ER) | payer BC ==
--- OUTSIDE RECORDS SUMMARY | 2019-07-22 12:53 | XMS REPORT | Continuity of Care Document ---
:1985 External Reference #:[id number] Author Name Licha Barajas MD (transmitted by agent of provider Justine Terrell) Address [address], [place] [address] Problems Description No Information Available Social History Type Date Description Comments Sex Unknown Tobacco Use Start: Unknown Patient has never smoked Smoking Status Reviewed: 06/04/19 Patient has never smoked Allergies, Adverse Reactions, Alerts Active Allergies Reaction Severity Comments Date Mold 06/04/2019 Penicillin 06/04/2019 Amoxicillin 06/04/2019 Latex 06/04/2019 Medications Active Medications SIG Qnty Indications Ordering Provider Date Propranolol HCL 1 by mouth twice Unknown 20mg a day Tablets Immunizations Description No Information Available Vital Signs Date Vital Result Comment 06/04/2019 4:24pm Height 69 inches 5'9" Weight 175.00 lb Heart Rate 65 /min BP Systolic 117 mmHg BP Diastolic 64 mmHg Body Temperature 97.5 F O2 % BldC Oximetry 97 % BMI (Body Mass Index) 25.8 kg/m2 Results Description No Information Available Procedures Description No Information Available Medical Devices Description No Information Available Encounters Description No Information Available Assessments Date Code Description Provider 06/04/2019 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
[2019-07-22 13:56] VITALS: BP 115/72
--- NOTE | 2019-07-22 14:03 | UC ---
FLU HPI - HPI Summary HPI Summary: 34 yo male presents with flu-like symptoms. He tells me that for the last 5 days he has had sinus pain/pressure/congestion, but feels this is improving. Over the last 2 days has had increased bowel movements, but states these are better today. Also feels body aches and overall tied. Has been taking tylenol OTC with good relief. Denies fever, chills, cough, SOB, chest pain, n/v, dysuria , back pain. - History of Current Complaint Chief Complaint: UCGeneralIllness Stated Complaint: ABD PAIN SORE THROAT CONGESTION Time Seen by Provider: 07/22/19 14:03 Hx Obtained From: Patient Severity Currently: Mild Severity Initially: Mild Pain Intensity: 4 Pain Scale Used: 0-10 Numeric - Allergy/Home Medications Allergies/Adverse Reactions: Allergies Allergy/AdvReac Type Severity Reaction Status Date / Time amoxicillin Allergy Vomiting Verified 07/22/19 13:50 latex Allergy Rash And Verified 07/22/19 13:50 Itching Penicillins Allergy Vomiting Verified 07/22/19 13:50 MOLD BASED PRODUCTS Allergy Vomiting Uncoded 07/22/19 13:50 Home Medications: Home Medications Methimazole TAB* [Tapazole TAB*] 10 mg PO DAILY 07/22/19 [History Confirmed 06/30] PMH/Surg Hx/FS Hx/Imm Hx Endocrine History: Hyperthyroidism - Surgical History Surgical History: Yes Surgery Procedure, Year, and Place: eustachian tubes as a child. RIGHT HAND 2018 - Family History Known Family History: Positive: Cardiac Disease, Hypertension, Diabetes - Social History Occupation: Employed Full-time Lives: With Family Alcohol Use: Rare Substance Use Type: None Smoking Status (MU): Never Smoked Tobacco Have You Smoked in the Last Year: No - Immunization History Most Recent Influenza Vaccination: Not UTD Most Recent Tetanus Shot: 2011 Review of Systems All Other Systems Reviewed And Are Negative: No Constitutional: Positive: Fatigue, Other - Body aches Skin: Positive: Negative Eyes: Positive: Negative ENT: Positive: Nasal Discharge, Sinus Congestion, Sinus Pain/Tenderness Respiratory: Positive: Negative Cardiovascular: Positive: Negative Gastrointestinal: Positive: Negative Genitourinary: Positive: Negative Motor: Positive: Negative Neurovascular: Positive: Negative Musculoskeletal: Positive: Negative Neurological: Positive: Negative Psychological: Positive: Negative Physical Exam - Summary Physical Exam Summary: GENERAL: NAD. WDWN. No pain distress. SKIN: No rashes, sores, lesions, or open wounds. HEENT: Head: AT/NC Eyes: EOM intact. Conjunctiva clear without inflammation or discharge. Ears: Hearing grossly normal. TMs intact, no bulging, erythema, or edema. Nose: Nasal mucosa pink and moist. NTTP maxillary and frontal sinus. Throat: Posterior oropharynx without exudates, erythema, or tonsillar enlargement. Uvula midline. NECK: Supple. Nontender. No lymphadenopathy. CHEST: CTAB. No accessory muscle use. Breathing comfortably and in no distress. CV: RRR. Pulses intact. Cap refill <2seconds ABDOMEN: Soft NTTP NEURO: Alert. PSYCH: Age appropriate behavior. Triage Information Reviewed: Yes Vital Signs: Initial Vital Signs Temp 98.9 F 07/22/19 13:50 Pulse 62 07/22/19 13:50 Resp 16 07/22/19 13:50 BP 115/72 07/22/19 13:50 Pulse Ox 99 07/22/19 13:50 Laboratory Tests 07/22/19 07/22/19 14:55 14:57 Influenza A (Rapid) Negative Influenza B (Rapid) Negative Group A Strep Rapid Negative Vital Signs Reviewed: Yes Flu Course/Dx - Course Course Of Treatment: POC strep and flu negative. Afebrile. Exam WNL. Suspect viral illness - Differential Dx/Diagnosis Provider Diagnosis: Viral syndrome Discharge ED - Sign-Out/Discharge Documenting (check all that apply): Patient Departure All imaging exams completed and their final reports reviewed: No Studies - Discharge Plan Condition: Stable Disposition: HOME Patient Education Materials: Viral Syndrome (ED) Forms: *Work Release Referrals: Licha Barjaas MD [Primary Care Provider] - Additional Instructions: Your strep and flu test are negative Your symptoms are likely from a viral infection. Viral infections do not respond to antibiotics and are limited to the treatment of symptoms. Viral infections typically run their course in 7-10 days. Drink plenty of fluids, especially if you are running any fever. Use salt water gargles several times a day. Take over the counter acetaminophen (Tylenol) or ibuprofen (Advil, Motrin) according to directions as needed for pain or fever. You may also use Chloraseptic spray or Cepacol lonzenges according to directions which contain a numbing medication and can provide some temporary relief from a sore throat. Return here or follow up with your primary care provider in 7 days if symptoms persist. - Billing Disposition and Condition Condition: STABLE Disposition: Home
[2019-07-22 15:09] LABS: Influenza A Molecular NEGATIVE (Negative); Influenza B Molecular NEGATIVE (Negative)
== END 2019-07-22 15:15 | disposition home or self-care (01) ==
LOC: UCEAST 12:47
DX: B34.9 Viral infection, unspecified (principal); R09.81 Nasal congestion; J02.9 Acute pharyngitis, unspecified; R10.9 Unspecified abdominal pain; R53.83 Other fatigue; R09.89 Other specified symptoms and signs involving the circulatory and respiratory systems; Z88.0 Allergy status to penicillin; Z91.040 Latex allergy status; Z91.09 Other allergy status, other than to drugs and biological substances
CPT/HCPCS: 87651; 99211; G0463

== ENCOUNTER 2019-07-30 17:40 | Emergency (ER) | payer BC ==
[2019-07-30 18:04] VITALS: BP 129/76
--- NOTE | 2019-07-30 18:05 | UC ---
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 Assessed last week at with negative strep. Symptoms improved, but now concerned because he has persistent sore throat and voice change, although cough has improved. Leaving tomorrow to visit 2 yo nephew. - History of Current Complaint Chief Complaint: UCGeneralIllness Stated Complaint: SORE THROAT Time Seen by Provider: 07/30/19 17:55 Hx Obtained From: Patient Onset/Duration: Gradual Onset, Lasting Weeks - 2 Severity: Moderate Pain Intensity: 6 Cough: Nonproductive Associated Signs & Symptoms: Positive: Dysphagia, Hoarseness - Epiglottits Risk Factors Epiglottis Risk Factors: Negative - Allergies/Home Medications Allergies/Adverse Reactions: Allergies Allergy/AdvReac Type Severity Reaction Status Date / Time amoxicillin Allergy Vomiting Verified 07/30/19 18:04 latex Allergy Rash And Verified 07/30/19 18:04 Itching Penicillins Allergy Vomiting Verified 07/30/19 18:04 MOLD BASED PRODUCTS Allergy Vomiting Uncoded 07/30/19 18:04 Home Medications: Home Medications D-Methorphan/PE/Acetaminophen [Daytime Cold-Flu Liquid] 237 ml PO Q4HR PRN 07/30 [History Confirmed 07/30/19] PMH/Surg Hx/FS Hx/Imm Hx Endocrine History: Hyperthyroidism - Surgical History Surgical History: Yes Surgery Procedure, Year, and Place: eustachian tubes as a child. RIGHT HAND 2018 - Family History Known Family History: Positive: Cardiac Disease, Hypertension, Diabetes, Other - + Graves disease - Social History Occupation: Employed Full-time Lives: With Family Alcohol Use: Rare Substance Use Type: None Smoking Status (MU): Never Smoked Tobacco Have You Smoked in the Last Year: No - Immunization History Most Recent Influenza Vaccination: Not UTD Most Recent Tetanus Shot: 2011 Review of Systems All Other Systems Reviewed And Are Negative: Yes Constitutional: Positive: Fatigue Skin: Positive: Negative Eyes: Positive: Negative ENT: Positive: Sore Throat Respiratory: Positive: Cough Cardiovascular: Positive: Negative Gastrointestinal: Positive: Negative Genitourinary: Positive: Negative Motor: Positive: Negative Neurovascular: Positive: Negative Musculoskeletal: Positive: Negative Neurological: Positive: Negative Psychological: Positive: Negative Is Patient Immunocompromised?: No Physical Exam Triage Information Reviewed: Yes Appearance: Well-Nourished, Ill-Appearing - looks fatigued. Vital Signs: Initial Vital Signs Temp 98.1 F 07/30/19 17:59 Pulse 67 07/30/19 17:59 Resp 16 07/30/19 17:59 BP 129/76 07/30/19 17:59 Pulse Ox 97 07/30/19 17:59 Eye Exam: Normal ENT: Positive: Pharyngeal erythema, Tonsillar swelling. Negative: Tonsillar exudate Neck: Positive: Supple, Nontender, No Lymphadenopathy Respiratory: Positive: Lungs clear, Normal breath sounds Cardiovascular: Positive: RRR, No Murmur Abdomen Description: Positive: Nontender, No Organomegaly, Soft Musculoskeletal Exam: Normal Neurological Exam: Normal Psychological Exam: Normal Skin Exam: Normal Throat Pain/Nasal Course/Dx - Course Course Of Treatment: Continue symptomatic treatment of viral illness. - Differential Dx/Diagnosis Differential Diagnosis/HQI/PQRI: Influenza, Laryngitis, Sinusitis, Tonsillitis, URI, Other Provider Diagnosis: Pharyngitis Discharge ED - Sign-Out/Discharge Documenting (check all that apply): Patient Departure All imaging exams completed and their final reports reviewed: No Studies - Discharge Plan Condition: Stable Disposition: HOME Patient Education Materials: Pharyngitis (ED) Referrals: Licha Barajas MD [Primary Care Provider] - Additional Instructions: Continue symptomatic treatment of viral illness, ensuring high intake of fluids and rest in the days ahead. - Billing Disposition and Condition Condition: STABLE Disposition: Home
== END 2019-07-30 18:49 | disposition home or self-care (01) ==
LOC: UCCORT 17:40
DX: J02.9 Acute pharyngitis, unspecified (principal); E05.90 Thyrotoxicosis, unspecified without thyrotoxic crisis or storm; Z88.0 Allergy status to penicillin; Z91.040 Latex allergy status
CPT/HCPCS: 87651; 99211; G0463

== ENCOUNTER 2019-08-25 19:55 | Emergency (ER) | payer BC ==
[2019-08-25 20:09] VITALS: BP 114/65
--- NOTE | 2019-08-25 20:22 | UC ---
Upper Extremity HPI - HPI Summary HPI Summary: Patient is a 34yo male presenting with b/l antecubital pain and R popliteal pain x3 days. Describes pain as nonradiating, sharp pains. Notes this has happened several times over the past couple months and believes it is related to side effects of his propranolol or methimazole which he has been taking since may for hyperthyroidism. States pain usually is better with hot baths or icing. States he has tried both without relief this time. States walking somewhat relieves popliteal pain. Denies skin changes. Denies edema. Denies decreased ROM. States his pcp and conference center manager both know of side effects and are thinking of weaning off propranolol soon. States this is going to be further discussed at his pcp appt on . Patient then notes that his b/l antecubital pain did stop before coming in after he iced the areas. Notes current R popliteal pain. States he has not taken any otc analgesics because he "does not believe in them." Denies sob, fever, chest pain, fatigue, arm/leg weakness. Denies h/o DVT/PE. - History of Current Complaint Chief Complaint: UCGeneralIllness Stated Complaint: LEG PAIN, ARM PAIN Hx Obtained From: Patient Pain Intensity: 7 - Allergies/Home Medications Allergies/Adverse Reactions: Allergies Allergy/AdvReac Type Severity Reaction Status Date / Time amoxicillin Allergy Vomiting Verified 08/25/19 20:09 latex Allergy Rash And Verified 08/25/19 20:09 Itching Penicillins Allergy Vomiting Verified 08/25/19 20:09 MOLD BASED PRODUCTS Allergy Vomiting Uncoded 07/30/19 18:04 PMH/Surg Hx/FS Hx/Imm Hx Endocrine History: Hyperthyroidism - Surgical History Surgical History: Yes Surgery Procedure, Year, and Place: eustachian tubes as a child. RIGHT HAND 2018 - Family History Known Family History: Positive: Cardiac Disease, Hypertension, Diabetes, Other - + Graves disease - Social History Alcohol Use: Rare Substance Use Type: None Smoking Status (MU): Never Smoked Tobacco Have You Smoked in the Last Year: No - Immunization History Most Recent Influenza Vaccination: Not UTD Most Recent Tetanus Shot: 2011 Review of Systems All Other Systems Reviewed And Are Negative: Yes Constitutional: Positive: Negative Skin: Positive: Negative ENT: Positive: Negative Respiratory: Positive: Negative Cardiovascular: Positive: Negative Gastrointestinal: Positive: Negative Motor: Positive: Negative Neurovascular: Positive: Negative. Negative: Decreased Sensation Musculoskeletal: Positive: Other: - R posterior knee pain. bilateral antecubital pain. Negative: Decreased ROM, Edema Neurological: Positive: Negative Physical Exam Triage Information Reviewed: Yes Appearance: Well-Appearing, No Pain Distress, Well-Nourished Vital Signs: Initial Vital Signs Temp 98.3 F 08/25/19 20:03 Pulse 61 08/25/19 20:03 Resp 14 08/25/19 20:03 BP 114/65 08/25/19 20:03 Pulse Ox 98 08/25/19 20:03 Vital Signs Reviewed: Yes Eyes: Positive: Conjunctiva Clear ENT: Positive: Hearing grossly normal Neck: Positive: Supple Respiratory Exam: Normal Respiratory: Positive: Lungs clear, Normal breath sounds, No respiratory distress, No accessory muscle use. Negative: Crackles, Rhonchi, Stridor, Wheezing Cardiovascular Exam: Normal Cardiovascular: Positive: RRR, No Murmur, Pulses Normal, Brisk Capillary Refill. Negative: Tachycardia, Bradycardia Musculoskeletal: Positive: Strength Intact, ROM Intact, No Edema, Other: - no tenderness to palpation of R knee. No calf tenderness. no tenderness to palpation of right or left UEs. Neurological Exam: Other - sensation grossly intact Neurological: Positive: Alert Psychological: Positive: Age Appropriate Behavior Skin Exam: Normal - no erythema or ecchymosis noted Skin: Negative: Rashes, Significant Lesion(s) Upper Extremity Course/Dx - Course Course Of Treatment: Patient presenting with point tenderness of b/l antecubital fossas and R popliteal region. VS and PE findings normal. Discussed with patient unknown etiology of pain and that medication, hyperthyroidism, and recent increased physical activity may be contributing factors. I reassured patient and instructed to continue with symptomatic treatment, including otc analgesics. Instructed patient to follow up with pcp sooner than Sep 11 appt if pain persists. Patient voiced understanding and agreed with plan. - Differential Dx/Diagnosis Differential Diagnosis/HQI/PQRI: Arthritis, Strain, Sprain Provider Diagnosis: Popliteal pain Discharge ED - Sign-Out/Discharge Documenting (check all that apply): Patient Departure All imaging exams completed and their final reports reviewed: No Studies - Discharge Plan Condition: Stable Disposition: HOME Patient Education Materials: Knee Pain (ED) Referrals: Licha Barajas MD [Primary Care Provider] - 2 Days Additional Instructions: As discussed, it is unclear what is causing you pain today. You may continue to apply ice or heat. You may continue to stretch and walk if it provides relief. You may also take over the counter pain medication as directed for pain relief. It is recommended that you follow up with your primary care provider within the next 2-3 days for further evaluation. Go to the emergency room if you experience severe pain, redness and warmth, swelling, numbness and tingling, or leg weakness. - Billing Disposition and Condition Condition: STABLE Disposition: Home - Attestation Statements Provider Attestation: I was available for consult. This patient was seen by the GENNY. The patient was not presented to, seen by, or examined by me. -Justin
== END 2019-08-25 20:58 | disposition home or self-care (01) ==
LOC: UCEAST 19:55
DX: M25.561 Pain in right knee (principal); M25.522 Pain in left elbow; M25.521 Pain in right elbow; E05.90 Thyrotoxicosis, unspecified without thyrotoxic crisis or storm; Z91.040 Latex allergy status; Z88.0 Allergy status to penicillin; Z91.09 Other allergy status, other than to drugs and biological substances; Z83.49 Family history of other endocrine, nutritional and metabolic diseases
CPT/HCPCS: 99211; G0463